=== PATIENT | female | born 1955 | race Caucasian/White ===

== ENCOUNTER 2016-10-01 23:18 | Inpatient (IN) | payer MEDICAID ==
[~2016-10-01] VITALS: Ht 152.4 cm; Wt 80.3 kg
--- NOTE | ~2016-10-01 | HEMODYNAMI ---
PATIENT:ALBERTA MARIN MEDICAL RECORD: [id number] : 53 [facility] ADMISSION DATE: 10/02/16 Generatedon:10/06/201615:07 Patient name: ALBERTA MARIN Patient #: [id number] SSN: : 1955 Date of study: 10/06/2016 Page: Of Hemodynamic Procedure Report Patient Data Patient Demographics Procedure consent was obtained First Name: ALBERTA Gender: Female Last Name: TANIA : 1955 Middle Initial: D Age: 61 year(s) Patient #: [id number] Race: Additional ID: [id number] Contact details Address: [address] [place] [address] [address] State: [place] City: [place] Zip code: [address] Past Medical History Allergies: No known allergies Admission Admission Data Admission Date: 10/02/2016 Admission Time: 4:45 Admit Source: Other Room #: D.2111 Height (in.): 66 BSA: 1.9 (m2) Height (cm.): 167.64 BMI: 28.57 (kg/m2) Weight (lbs.): 177 Weight (kg.): 80.29 Procedure Procedure Types Cath Procedure Diagnostic Procedure [facility] w/Coronaries PCI Procedure Coronary Stent Initial PTCA Additional Miscellaneous Procedures Moderate Sedation up to 15 minutes Procedure Description Procedure Date Procedure Date: 10/06/2016 Procedure Start Time: 14:40 Procedure End Time: 15:06 Procedure Staff Name Function Huber Valentino MD Performing Physician Telly Chua RT Scrub Eron Mosley RN Nurse Armond Marcus RT Monitor Procedure Data Cath Procedure Fluoroscopy Diagnostic fluoroscopy Total fluoroscopy Time: 6.6 time: 6.6 min min Diagnostic fluoroscopy Total fluoroscopy dose: dose: 507.72 mGy 507.72 mGy Contrast Material Contrast Material Type Amount (ml) Isovue 300 119 Entry Location Entry Primary Successful Side Size Upsize Upsize Entry Closure Succes sful Closure Location (Fr) 1 (Fr) 2 (Fr) Remarks Device Remarks Femoral Left 5 Fr 6 Fr Exoseal artery Short Estimated blood loss: 10 ml Diagnostic catheters Device Type Used For End Catheter Placement Cordis 5Fr Pigtail Procedure Catheter (MP) Cordis 5Fr JL 4.0 Procedure Catheter (MP) Cordis 5Fr 3DRC Catheter Procedure (MP) Procedure Complications No complications Procedure Medications Medication Administration Route Dosage Oxygen NC 2 l/min Heparin Flush Bag added to field 2 bags (1000units/500ml NS) 0.9% NaCl I.V. ml/hr Fentanyl I.V. 50 mcg Versed I.V. 1 mg Versed I.V. 1 mg Fentanyl I.V. 50 mcg Fentanyl I.V. 50 mcg Heparin Bolus I.V. 4000 units Integrilin (Bolus I.V. 7.3 ml 2mg/ml) Integrilin (Bolus wasted 2.7 ml 2mg/ml) Plavix P.O. 600 mg Fentanyl I.V. 50 mcg Hemodynamics Rest BSA: 1.9 (m2) O2 Consumption: Estimated: 183.59 (ml/min) O2 Consumption indexed: Estimated:96.63 (ml/min/m) Heart Rate: 76 (bpm) Pressure Samples Time Site Value (mmHg) Purpose Heart Use Rate(bpm) 14:41 LV 102/35,39 Snapshot 77 Snapshots Pre Cath Intra NCS Post Cath Vital Signs Time Heart Resp SPO2 NIBP (mmHg) Rhythm Pain Sedation Rate (ipm) (%) Status Level (bpm) 14:06:17 76 17 100 123/67(85) NSR 0 (11) 10(A) , No pain 14:15:22 75 16 97 107/59(88) NSR 0 (11) 10(A) , No pain 14:19:48 78 17 98 112/54(91) NSR 0 (11) 10(A) , No pain 14:24:08 76 17 97 102/58(72) NSR 0 (11) 10(A) , No pain 14:28:26 75 16 97 107/61(80) NSR 0 (11) 10(A) , No pain 14:32:46 76 19 97 109/62(79) NSR 0 (11) 10(A) , No pain 14:37:06 75 19 96 118/63(85) NSR 0 (11) 10(A) , No pain 14:41:29 74 17 95 117/69(102) NSR 0 (11) 9(A) , No pain 14:45:51 76 17 94 123/64(92) NSR 0 (11) 9(A) , No pain 14:50:15 81 17 94 113/71(88) NSR 0 (11) 9(A) , No pain 14:55:39 80 19 95 144/80(112) NSR 0 (11) 9(A) , No pain 15:00:03 80 8 94 143/94(114) NSR 0 (11) 10(A) , No pain 15:04:27 80 12 94 153/94(118) NSR 0 (11) 10(A) , No pain Medications Time Medication Route Dose Verified Delivered Reason Notes Effectiveness by by 14:06:30 Oxygen NC 2 Eron Eron Per physician l/min Dimitri Mosley RN RN 14:06:41 Heparin Flush added 2 Eron Eron used for Bag to bags Dimitri Mosley rn procedure (1000units/500ml field RN NS) 14:06:50 0.9% NaCl I.V. ml/hr Eron Eron Per physician Dimitri Mosley RN RN 14:38:47 Versed I.V. 1 mg Eron Eron for sedation Dimitri Mosley RN RN 14:38:48 Fentanyl I.V. 50 Eron Eron for sedation mcg Dimitri Mosley RN RN 14:41:22 Versed I.V. 1 mg Eron Eron for sedation Dimitri Mosley RN RN 14:41:26 Fentanyl I.V. 50 Eron Eron for sedation mcg Dimitri Mosley RN RN 14:47:20 Fentanyl I.V. 50 Eron Eron for sedation mcg Dimitri Mosley RN RN 14:47:30 Heparin Bolus I.V. 4000 Eron Eron for units Dimitri Mosley RN anticoagulation RN 14:47:41 Integrilin I.V. 7.3 Eron Eron for (Bolus 2mg/ml) ml Dimitri Mosley RN antiplatelet RN therapy 14:47:53 Integrilin wasted 2.7 Eron Eron for (Bolus 2mg/ml) ml Dimitri Mosley RN antiplatelet RN therapy 14:49:13 Fentanyl I.V. 50 Eron Eron for sedation mcg Mosley Mosley RN RN 14:57:36 Plavix P.O. 600 Eron Littlejohn for mg Dimitri Mosley RN antiplatelet RN therapy Procedure Log Time Note 13:50:33 Armond Marcus RT(R) (CV) sent for patient. Start room use. 14:05:00 Informed consent obtained and on chart 14:05:19 Diagnostic Cath Status : Elective 14:06:30 Oxygen 2 l/min NC was administered by Eron Mosley RN; Per physician; 14:06:36 Time tracking: Regular hours 14:06:41 Heparin Flush Bag (1000units/500ml NS) 2 bags added to field was administered by Eron Mosley RN; used for procedure; 14:06:42 Plan of Care:Hemodynamics will remain stable., Cardiac rhythm will remain stable., Comfort level will be maintained., Respiratory function will remain adequate., Patient/ family verbilizes understanding of procedure., Procedure tolerated without complication., Recovers from procedure without complications.. 14:06:50 0.9% NaCl ml/hr I.V. was administered by Eron Mosley RN; Per physician; 14:06:57 Patient received from PCU to CCL 3 Alert and oriented. Tansferred to table in Supine position. 14:09:58 PATIENT STATES THAT SHE FELL AND BROKE RIGHT HIP. WE WERE NOT TOLD BY NURSE. SHE COMPLAINS OF PAIN WE MOVE HER WITH SLIDE BOARD. H&P STATES INJURY FROM JULY. 14:14:04 ECG and BP/O2 sat monitors applied to patient. 14:14:07 Warm blankets applied, and vin hugger turned on for patient comfort. 14:14:08 Correct patient and procedure confirmed by team. 14:14:09 Vital chart was started 14:14:13 Baseline sample Acquired. 14:14:23 Rhythm: sinus rhythm 14:14:25 Full Disclosure recording started 14:14:44 H&P Date Dictated: 10/01/2016 Within 30 days and on chart., H&P Addendum completed by physician on day of procedure. (MUST COMPLETE FOR ALL OUTPATIENTS). 14:14:51 Pre-procedure instructions explained to patient. 14:14:53 Pre-op teaching completed and patient verbalized understanding. 14:14:57 Family unavailable. 14:14:59 Patient NPO since Breakfast. 14:15:18 Patient allergic to No known allergies 14:15:31 Is the patient allergic to Iodine/contrast media? No. 14:15:34 Is patient on blood thinner?No 14:15:48 Patient diabetic? No. 14:15:52 Patient not . Patient is over age 55. 14:20:59 Snore? Yes 14:21:01 Sleep apnea? No 14:21:04 Deviated septum? No 14:21:05 Opens mouth fully? Yes 14:21:07 Sticks out tongue? Yes 14:22:09 Airway obstruction? No ? 14:22:12 Dentures? No ? 14:22:31 Pre procedure: left dorsailis pedis pulse 1+ Palpable, but thready & weak; easily obliterated 14:22:55 Patient pain scale 0/10 NO CHEST PAIN, RIGHT HIP PAIN. 14:23:10 IV patent on arrival in right hand with 0.9% NaCl at [facility]. 14:23:47 PATIENT IS CONTACT PRECAUTION FOR C-DIFF RULE OUT. 14:24:29 YELLOW GOWNS ARE UTILIZED WELL UNIVERSAL PRECAUTION 14:25:38 Left groin area was prepped with chlora-prep and draped in sterile fashion 14:25:40 Alarms reviewed by R. N. 14:25:41 Sharps counted by scrub and verified by R.N. 14:27:05 Patient Height : 167.64 cm 14:27:10 Patient Weight : 80.29 kg 14:27:10 Admit Source: Other 14:33:57 Zero performed for pressure channel P1 14:37:48 Physician arrived 14:37:49 --------ALL STOP TIME OUT------ 14:37:50 Final Timeout: patient, procedure, and site verified with staff and physician. All members of the team are in agreement. 14:37:53 Left groin site verified by team. 14:38:07 Physical assessment completed. ASA score P 2 - A patient with mild systemic disease as per Huber Valentino MD. 14:38:11 Sedation plan: IV Moderate Sedation Versed, Fentanyl 14:38:14 Use device set Femoral Dx 14:38:16 Acist Syringe opened to sterile field. 14:38:17 Bag Decanter opened to sterile field. 14:38:18 Medline Cath Pack opened to sterile field. 14:38:19 Terumo 5Fr [place] Sheath opened to sterile field. 14:38:19 St Rick 260cm J .035 wire opened to sterile field. 14:38:21 Acist Hand Control opened to sterile field. 14:38:21 Acist Manifold opened to sterile field. 14:38:22 Diagnostic Infinity 5Fr Multipack catheter opened to sterile field. 14:38:23 Tegaderm 4 x 4 opened to sterile field. 14:38:47 Versed 1 mg I.V. was administered by Eron Mosley RN; for sedation; 14:38:48 Fentanyl 50 mcg I.V. was administered by Eron Mosley RN; for sedation; 14:40:13 Procedure started. 14:40:20 Local anesthetic to left femerol artery with Lidocaine 2% by Huber Valentino MD.INITIAL ACCESS ONLY 14:41:07 A 5 Fr sheath was inserted into the Left Femoral artery 14:41:13 A Cordis 5Fr Pigtail Catheter (MP) was advanced over the wire and used for Procedure. 14:41:22 Versed 1 mg I.V. was administered by Eron Mosley RN; for sedation; 14:41:26 Fentanyl 50 mcg I.V. was administered by Eron Mosley RN; for sedation; 14:41:29 LV hemodynamics recorded. 14:41:32 LV gram done using AGUILERA 14:41:38 EF : 40 % 14:41:40 Catheter removed. 14:41:47 A Cordis 5Fr JL 4.0 Catheter (MP) was advanced over the wire and used for Procedure. 14:42:26 LCA angiography performed. 14:43:22 Catheter removed. 14:43:27 A Cordis 5Fr 3DRC Catheter (MP) was advanced over the wire and used for Procedure. 14:44:26 RCA angiography performed. 14:44:42 Catheter removed. 14:44:45 Proceeding to intervention. 14:46:23 Cordis 6FR XBLAD 4.0 guide catheter opened to sterile field. 14:46:24 Terumo 6Fr [place] Sheath opened to sterile field. 14:46:25 Breaux Whisper J 300cm 0.014 guide wire opened to sterile field. 14:46:27 Merit BasixCompak Inflation Kit opened to sterile field. 14:46:39 Procedure type changed to Cath procedure, Diagnostic procedure, LHC, LHC w/Coronaries, PCI procedure, Coronary Stent Initial, PTCA Additional, Miscellaneous Procedures, Moderate Sedation up to 15 minutes 14:46:51 Sheath upsized to a 6 Fr Short. 14:47:02 6 Fr XBLAD 4 guide catheter was inserted over the wire 14:47:20 Fentanyl 50 mcg I.V. was administered by Eron Mosley RN; for sedation; 14:47:30 Heparin Bolus 4000 units I.V. was administered by Eron Mosley RN; for anticoagulation; 14:47:41 Integrilin (Bolus 2mg/ml) 7.3 ml I.V. was administered by Eron Mosley RN; for antiplatelet therapy; 14:47:53 Integrilin (Bolus 2mg/ml) 2.7 ml wasted was administered by Eron Mosley RN; for antiplatelet therapy; 14:47:56 WHISPER wire advanced. 14:48:14 Wire advanced across lesion. 14:49:00 Inflation Number: 1 A Medtronic Integrity 2.5 X 12 stent was prepped and advanced across the Mid LAD. The stent was deployed at 11 DIANA for 0:10 (min:sec). 14:49:13 Fentanyl 50 mcg I.V. was administered by Eron Mosley RN; for sedation; 14:50:02 Stent catheter was removed intact over wire. 14:51:02 Inflation Number: 2 A Medtronic Integrity 2.5 X 18 stent was prepped and advanced across the Mid LAD. The stent was deployed at 11 DIANA for 0:10 (min:sec). 14:51:06 Stent catheter was removed intact over wire. 14:52:59 Wire redirected to DIAGONAL. 14:53:01 Stent balloon re-inserted over wire. 14:53:49 STENT BALLOON INFLATED 5 DIANA'S FOR 10 SECONDS 14:53:52 Wire removed. 14:53:57 Stent catheter was removed intact over wire. 14:53:59 Guide catheter removed. 14:54:22 Cordis 6Fr Exoseal opened to sterile field. 14:54:34 Sheath removed intact; hemostasis achieved with Exoseal to the Left Femoral artery. 14:54:45 Procedure ended.(Physican Out) 14:55:01 Fluoroscopy time 06.60 minutes. 14:55:08 Fluoroscopy dose: 507.72 mGy 14:55:08 Flurop Dose total: 507.72 14:55:18 Contrast amount:Isovue 300 119ml. 14:55:19 Sharps counted by scrub and verified by R.N. 14:57:36 Plavix 600 mg P.O. was administered by Eron Mosley RN; for antiplatelet therapy; 15:01:23 Insertion/operative site no bleeding no hematoma. 15:02:19 Post-op/insertion site Right Femoral artery dressed using a 4 x 4 and Tegaderm. 15:02:20 Post Procedure Pulses reassessed and unchanged 15::23 Post-procedure physical assessment completed. ASA score P 2 - A patient with mild systemic disease as per Huber Valentino MD. 15:02:26 Post procedure rhythm: unchanged. 15:02:29 Estimated blood loss: 10 ml 15:02:30 Post procedure instruction explained to patient.Patient verbalizes understanding. 15:02:31 Patient needs reinforcement of post procedure teaching. 15:02:59 Procedure Complication : No complications 15:03:31 Procedure and supply charges have been captured, reviewed, submitted and are correct. 15:06:22 Vital chart was stopped 15:06:22 See physician's report for complete and final results. 15:06:25 Report given to PCU. 15:06:28 Patient transfered to PCU with Bed. 15:06:30 Procedure ended. 15:06:30 Full Disclosure recording stopped 15:06:34 End room use (Document Last) Intervention Summary Intervention Notes Time ActionType Lesion and Equipment Action# Pressure Duration Attributes Used 14:49:00 Place stent Mid LAD Medtronic 1 11 00:10 Integrity 2.5 X 12 stent 14:51:02 Place stent Mid LAD Medtronic 2 11 00:10 Integrity 2.5 X 18 stent Device Usage Item Name Manufacture Quantity Catalog Hospital Part Current Minimal L ot# / Number Charge Number Stock Stock Serial# Code Acist Acist 1 52768 976235 001005 [id number] 20 Syringe Medical Systems Inc Bag Microtek 1 2002S 562109 20342 390211 5 [employer] Medline Cardinal 1 [id number] 812668 61690 976940 5 Cath Pack Autogeneration Marketing Terumo 5Fr Terumo 1 [id number] 505382 237216 492926 [address] Rick 1 388015 162286 202015 462091 30 260cm J .035 wire Acist Hand Acist 1 90160 265812 068540 150758 5 Control Medical Systems Inc Acist Acist 1 83680 289142 358181 940602 5 [facility] Medical Systems Inc Diagnostic Cardinal 1 [id number] 843303 11701 125295 30 Infinity Health 5Fr Multipack catheter Tegaderm 4 3M 1 1626W 464115 244993 260448 5 x 4 Cordis 5Fr Cardinal 1 108630 5 Pigtail Health Catheter (MP) Cordis 5Fr Cardinal 1 854241 5 JL 4.0 Health Catheter (MP) Cordis 5Fr Cardinal 1 909300 5 3DRC Health Catheter (MP) Cordis 6FR Cardinal 1 [id number] 308185 538589 538890 3 XBLAD 4.0 Health guide catheter Terumo 6Fr Terumo 1 JNS208 668514 300996 385560 40 [place] Sheath Breaux Breaux 1 [id number] 647481 958234 556644 5 Whisper J Vascular 300cm 0.014 guide wire Merit Merit 1 SE4935 706905 760354 879642 15 BasixCompak Medical Inflation Kit Medtronic Medtronic 1 [id number] 491162 293234 3 0 [id number] Integrity 2.5 X 12 stent Medtronic Medtronic 1 [id number] 783775 338813 1 0 [id number] Integrity 2.5 X 18 stent Cordis 6Fr Cardinal 1 EX600 923744 535688 883100 10 [facility] Autogeneration Marketing Signature Audit [place] Stage Time Signature Unsigned Intra-Procedure 10/06/2016 Armond Marcus 3:06:57 PM RT(R) (CV) Signatures Monitor : Armond Marcus RT Signature : Date : Time : [facility] [address] [place], [place] [address]
[2016-10-01 23:54] LABS: BASOPHILS 0.3 % (0-2); EOSINOPHILS 0.6 % (0-7); HEMATOCRIT 31.8 % (36.0-48.0); HEMOGLOBIN 10.9 g/dL (12-16); IMMATURE GRANULOCYTES 1.3 % (0-5); MCH 40.1 pg (26.0-34.0); MCHC 34.3 g/dL (31.0-37.0); MCV 116.9 fL (80.0-100.0); MEAN PLATELET VOLUME 10.8 fL (7.4-10.4); MONOCYTES 1.9 % (2-11); NEUTROPHILS 90.9 % (40-80); PLATELET COUNT 56 10x3/uL (130-400); RBC 2.72 10x6/uL (4.00-5.40); RDW 18.1 % (11.5-14.5); WBC 3.2 10x3/uL (4.8-10.8)
[2016-10-02] VITALS (18 sets, daily range): BP systolic 101–126; BP diastolic 64–82; BMI 34.6
[2016-10-02 00:08] LABS: APPEARANCE HAZY (CLEAR); BACTERIA NONE SEEN /hpf (NONE SEEN); BILIRUBIN NEGATIVE (NEGATIVE); COLOR YELLOW (YELLOW); EPITHELIAL CELLS NSEEN /hpf (0-5); GLUCOSE NEGATIVE (NEGATIVE); KETONE NEGATIVE (NEGATIVE); LEUKOCYTE ESTERASE NEGATIVE (NEGATIVE); NITRITE NEGATIVE (NEGATIVE); PROTEIN 2+ mg/dL (NEGATIVE); UROBILINOGEN NORMAL (NORMAL); WHITE CELLS - URINE 0-5 /hpf (0-5)
[2016-10-02 00:25] LABS: ALBUMIN 1.2 g/dL (3.4-5.0); ANION GAP 17.2 mmol/L (8-16); BILIRUBIN - TOTAL 3.23 mg/dL (0.2-1.3); CALCIUM 7.7 mg/dL (8.5-10.1); CARBON DIOXIDE 20.1 mmol/L (21.0-32.0); CREATININE - SERUM 1.1 mg/dL (0.6-1.3); POTASSIUM - SERUM 3.3 mmol/L (3.5-5.1); PROTEIN - SERUM 6.5 g/dL (6.4-8.2)
[2016-10-02 01:09] LABS: TROPONIN-I 0.32 ng/mL (0.000-0.060)
[2016-10-02 03:53] LABS: TROPONIN-I 5.104 ng/mL (0.000-0.060)
--- NOTE | 2016-10-02 07:33 | NUR ---
PT ARRIVED ON UNIT VIA STRETCHER FROM ER. PT HAD 3 EMPTY PILL BOTTLES AND CHANGE PURSE WITH HER. ON 2L WITH O2 SAT 98% COMPLAINS OF PAIN IN ABDOMEN AND NAUSEA AT THIS TIME, GIVEN EMESIS BAG. PT AAOX4 AND LETHARGIC. ABLE TO ANSWER ALL QUESTIONS APPROPRIATELY. VITAL SIGNS STABLE. ASSESSMENT DOCUMENTED PER FLOWSHEET
[2016-10-02] MEDS ORDERED: MOTRIN600 MG PO (07:54)
[2016-10-02] MEDS ORDERED: AUGMENTIN 875-11 TAB PO (07:56)
[2016-10-02] MEDS ORDERED: PERCOCET 5-3251 TAB PO (07:57)
[2016-10-02 08:40] LABS: CKMB 12.3 U/L (0.0-3.6); CREATINE KINASE 154 UL (21-215)
[2016-10-02 08:46] LABS: TROPONIN-I 6.559 ng/mL (0.000-0.060)
--- NOTE | 2016-10-02 09:00 | NUR ---
CARDIOLOGY ROUNDED ON PT AND WROTE ORDERS. PAIN AND NAUSEA MEDICATION ORDERED AND ARE TO BE GIVEN PRN. WILL CONTINUE TO MONITOR
--- NOTE | 2016-10-02 11:00 | NUR ---
DR SWANSON GIVEN UPDATE ON PT STATUS. RECORDS RELEASE SIGNED AND SENT TO [facility] FOR PAST MEDICAL RECORDS. NO FURTHER CHANGES AT THIS TIME
[2016-10-02 12:57] LABS: CHOL - HDL RATIO 9.3 ratio (2.3-4.1); LDL-HDL RATIO 7.2 ratio (1.5-3.5)
--- NOTE | 2016-10-02 13:00 | NUR ---
DR JESUS ROUNDED ON PT AND PUT ORDERS FOR PAST SEIZURE HISTORY. EEG IN PROGRESS. WILL CONTINUE TO MONTIOR
[2016-10-02 14:18] LABS: INR 1.78 (0.85-1.17); PROTIME 20.7 SECONDS (11.6-15.0)
[2016-10-02 14:48] LABS: CKMB 17.7 U/L (0.0-3.6); CREATINE KINASE 180 UL (21-215)
[2016-10-02 14:51] LABS: TROPONIN-I 6.122 ng/mL (0.000-0.060)
--- NOTE | 2016-10-02 15:00 | NUR ---
PIV SITED IN RIGHT HAND 22GA WITH DRESSING CDI. BICARB INFUSING AT 50 ML/HR. NO CHANGES IN PT STATUS AT THIS TIME. WILL CONTINUE TO MONITOR
--- NOTE | 2016-10-02 17:49 | HP ---
PATIENT: ALBERTA LEWIS MEDICAL RECORD: [id number] ACCOUNT: [id number] LOCATION:[facility] D.2302 : 53 ADMISSION DATE: 10/02/16 HISTORY AND PHYSICAL EXAMINATION HISTORY OF PRESENT ILLNESS: Ms. Lewis is a 61-year-old black female that comes into the Emergency Room with shortness of breath and chest pain. EKG shows no EKG changes; however, she is found to have elevated cardiac enzymes and an elevated lactic acid compatible with a non-Q-wave AK. She was recently hospitalized at [facility] for pneumonia and also had a medial femoral condyle fracture. She went to follow up with orthopedics, but was told she was too late and never went back to see them. She is still wearing a knee brace at this time. She was complaining of abdominal pain earlier, but that seems better now. She denies any chest pain at present. Incidental finding at the time of ER visit was a liver mass suspicious for hepatocellular carcinoma. She has a known history of cirrhosis secondary to alcohol abuse, but states that she has not drunk heavily in some time. Her fiance today also states that she had a couple of beers on Sunday, but that is the first time that this happened. He actually found her at their apartment last night lying on the floor, seizure was not actually witnessed and apparently last seizure was about over a month ago. She states she has not taken the Dilantin over a year due to lack of a PCP. She is admitted to the ICU at this time for further evaluation. PAST MEDICAL HISTORY: Significant for seizures and cirrhosis, recent hospitalization for pneumonia. PAST SURGICAL HISTORY: Include a cholecystectomy, section and left breast biopsy, which was benign. ALLERGIES: None known. HOME MEDICATIONS: She was taking some Augmentin and oxycodone upon discharge from [facility]. She is supposed to be on Dilantin, her previous dose was 100mg b.i.d., but again she has not taken it in sometime. FAMILY HISTORY: Unknown. SOCIAL HISTORY: She is trying to quit smoking. She has been a heavy drinker in the past and still drinks a couple of cans of beer on occasion. She is currently living with her fiance. REVIEW OF SYSTEMS: She is a pretty poor historian. She apparently had some fever at home, but she denies that at this time. She complains primarily of upper abdominal pain. She had some chest pain last night. She feels better today. Her weight has been stable. She denies any nausea or vomiting at this time. She complains of pain in the right knee. She is wearing a knee brace on the right. She denies any change in bladder or bowel habits. PHYSICAL EXAMINATION: HEENT: Head is normocephalic, sclerae nonicteric. Mucous membranes are moist. NECK: Soft and supple. HEART: Regular. LUNGS: Clear. ABDOMEN: There is some tenderness in the epigastric area. The liver is nonpalpable. HISTORY AND PHYSICAL [id number] ALBERTA LEWIS LOWER EXTREMITIES: Okay. IMPRESSION: 1. Non-Q-wave acute myocardial infarction. 2. Liver mass. 3. Seizure disorder. 4. Medial femoral condyle and knee fracture, elevated lactic acid, hypokalemia, elevated LFTs, history of alcohol abuse. PLAN: Admit, ICU, we will get cardiology ____ beta payton and aspirin have been started. We will check lipid, we will check tumor markers. We will get a dedicated CT abdomen and pelvis due to liver mass, this may need a biopsy. We will check a chest x-ray, knee x-ray, get an EEG and ask Dr. Felipe to assess. See further orders for plan. TRANSINT:[id number] Voice Confirmation ID: [id number] DOCUMENT ID: [id number] CALLI SWANSON DO at 1749 CC: [id number] DICTATION DATE: 10/02/16 1232 CREDIT AND COLLECTIONS ANALYST: 10/02/16 1446 ADM IN [place] [id number] [place] [id number]
--- NOTE | 2016-10-02 19:40 | NUR ---
REPORT RECIEVED. ASSESSMENT COMPLETE PER FLOW SHEET. VSS. GIVEN SPRITE PER REQUEST. R LEG ELEVATED ON PILLOW WITH ICE TO DECREASE SWELLING. DENIES FURTHER NEEDS. WILL CONTINUE TO MONITOR.
[2016-10-02 20:57] LABS: CREATINE KINASE 175 UL (21-215)
[2016-10-02 21:02] LABS: CKMB 10.3 U/L (0.0-3.6)
[2016-10-02 21:06] LABS: TROPONIN-I 6.442 ng/mL (0.000-0.060)
--- NOTE | 2016-10-02 23:28 | NUR ---
REASSESSMENT COMPLETE PER FLOW SHEET. VSS. NO NEW CHANGES WILL CONTINUE TO MONITOR.
[2016-10-03] VITALS (24 sets, daily range): BP systolic 102–141; BP diastolic 47–93; Ht 152.4 cm; Wt 80.3 kg
--- NOTE | 2016-10-03 01:12 | NUR ---
VSS NO NEW CHANGES. PT SLEEPING COMFORTABLY.
--- NOTE | 2016-10-03 03:16 | NUR ---
REASSESSMENT COMPLETEPER LFOW SHEET. VSS. NO NEW CHANGES. WILL CONTINUE TO MONITOR.
[2016-10-03 05:09] LABS: BASOPHILS 0.3 % (0-2); EOSINOPHILS 2.2 % (0-7); HEMATOCRIT 31.7 % (36.0-48.0); HEMOGLOBIN 10.8 g/dL (12-16); IMMATURE GRANULOCYTES 0.9 % (0-5); MCHC 34.1 g/dL (31.0-37.0); MCV 117.4 fL (80.0-100.0); MEAN PLATELET VOLUME 11.1 fL (7.4-10.4); MONOCYTES 14.3 % (2-11); NEUTROPHILS 73.3 % (40-80); PLATELET COUNT 52 10x3/uL (130-400); RDW 17.8 % (11.5-14.5)
[2016-10-03 05:19] LABS: WBC 6.8 10x3/uL (4.8-10.8)
[2016-10-03 05:30] LABS: ALBUMIN 1.1 g/dL (3.4-5.0); BILIRUBIN - TOTAL 2.13 mg/dL (0.2-1.3); CALCIUM 7.2 mg/dL (8.5-10.1); CREATININE - SERUM 1.3 mg/dL (0.6-1.3); MAGNESIUM - SERUM 1.5 mg/dL (1.8-2.4); POTASSIUM - SERUM 3.6 mmol/L (3.5-5.1); PROTEIN - SERUM 6.1 g/dL (6.4-8.2)
[2016-10-03 05:37] LABS: ANION GAP 8.2 mmol/L (8-16); CARBON DIOXIDE 25.4 mmol/L (21.0-32.0)
--- NOTE | 2016-10-03 07:00 | NUR ---
PT AA0X4 AND ABLE TO OBEY COMMANDS. COMPLAINS OF SEVERE KNEE PAIN IN HER RIGHT KNEE. WILL GIVE PRN MEDICATIONS ORDERED. PT REPOSITIONED IN BED WITH MODERATE ASSISTANCE. SHIFT ASSESSMENT COMPLETED PER FLOWSHEET. NORMAL SINUS ON MONITOR. WILL CONTINUE TO MONITOR FOR EKG CHANGES. NO CHANGES AT THIS TIME. WILL CONTINUE TO MONITOR
[2016-10-03 07:27] LABS: HCG-QUANTITATIVE(TUMOR MARKER) <1 mIU/mL (())
[2016-10-03 08:20] LABS: ALPHA FETOPROTEIN -(TUMOR MRK) 49.4 ng/mL (0.0-8.3)
--- NOTE | 2016-10-03 09:00 | NUR ---
PT UP EATING BREAKFAST INDEPENDENTLY. STATES THAT NAUSEA HAS SUBSIDED FROM YESTERDAY. REPEAT CARDIAC ENZYMES TODAY. VITAL SIGNS STABLE
[2016-10-03 09:38] LABS: CKMB 8.4 U/L (0.0-3.6); CREATINE KINASE 112 UL (21-215)
[2016-10-03 09:39] LABS: TROPONIN-I 4.746 ng/mL (0.000-0.060)
--- NOTE | 2016-10-03 11:00 | NUR ---
PT HAS NO COMPLAINTS AT THIS TIME. VITAL SIGNS STABLE. WILL CONTINUE TO MONITOR.
[2016-10-03 12:17] LABS: HEPATITIS C ANTIBODY 0.3 (0.0-0.9)
--- NOTE | 2016-10-03 13:00 | NUR ---
PT TOLERATING MEALS WITHOUT NAUSEA. VITAL SIGNS STABLE. WILL CONITNUE TO MONITOR
--- NOTE | 2016-10-03 15:00 | NUR ---
PT IS RESTING COMFORTABLY AT THIS TIME. VITAL SIGNS STABLE. PT OFF OF OXYGEN AT THIS TIME AND O2 SAT REMAINS STABLE
--- NOTE | 2016-10-03 17:00 | NUR ---
PT UP EATING DINNER INDEPENDENLY. VITAL SIGNS STABLE AT THIS TIME. WILL CONTINUE TO MONITOR. DR SWANSON NOTIFIED OF OLIGURIA AND FLUIDS ADJUSTED.
--- NOTE | 2016-10-03 19:20 | NUR ---
REPORT RECIEVED. ASSESSMENT COMPLETE PER FLOW SHEET. REFER FOR FINDINGS. PT LETHARGIC ORIENTED X4. VSS. O2 VIA NC 2L O2 SAT 98% RR 16 NON LABORED BILAT LUNGS CLEAR HERAT S1S2 HR 77 NSR. BS ACTIVE X4. LI PATENT. GENERALIZED EDEMA NOTED X4 EXTREMETIES. X4 EXTREMETIES WEAK. R LEG BRACE NOTED ICE APPLIED TO SITE. DENIES NEEDS. GIVEN SPRITE FOR COMFORT. WILL CONTINUE TO MONITOR.
--- NOTE | 2016-10-03 21:00 | NUR ---
NO VISITORS AT THIS TIME, WILL CON'T TO MONITOR
--- NOTE | 2016-10-03 23:00 | NUR ---
REASSESSMENT COMPLETE, NO CHANGES NOTED, LG LIQUID BM AT THIS TIME, COMPLETE BATH AND LINEN CHANGE
[2016-10-04] VITALS (10 sets, daily range): BP systolic 115–138; BP diastolic 69–74
--- NOTE | 2016-10-04 01:08 | NUR ---
LARGE LIQUID ORANGE/BROWN BM NOTED. NO NEW CHANGES WILL CONTINUE TO MONITOR.
--- NOTE | 2016-10-04 02:16 | NUR ---
L AC PIV REMOVED. L WRIST 20 G PIV STARTED ON 1 ATTEMPT FLUSHES WITHOUT DIFFICULTY. VSS NO NEW CHANGES. WILL CONTINUE TO MONITOR.
--- NOTE | 2016-10-04 03:18 | NUR ---
REASSESSMENT COMPLETE PER FLOW SHEET.VSS. NO NEW CHANGES. WILL CONTINUE TO MONITOR.
[2016-10-04 04:05] LABS: BASOPHILS 0.4 % (0-2); HEMATOCRIT 31.5 % (36.0-48.0); IMMATURE GRANULOCYTES 1.3 % (0-5); LYMPHOCYTES 7.1 % (15-50); MCH 40.1 pg (26.0-34.0); MCHC 34.9 g/dL (31.0-37.0); MONOCYTES 14.8 % (2-11); NEUTROPHILS 75.4 % (40-80); RBC 2.74 10x6/uL (4.00-5.40); RDW 17.2 % (11.5-14.5); WBC 6.9 10x3/uL (4.8-10.8)
[2016-10-04 04:11] LABS: PLATELET COUNT 46 10x3/uL (130-400)
[2016-10-04 04:14] LABS: INR 1.71 (0.85-1.17)
[2016-10-04 04:45] LABS: ALKALINE PHOSPHATASE 191 U/L (46-116); ALT (SGPT) 18 U/L (10-68); BILIRUBIN - TOTAL 2.78 mg/dL (0.2-1.3); CALC OSMOLALITY 274 mosm/kg (275-300); CALCIUM 7.3 mg/dL (8.5-10.1); CARBON DIOXIDE 24.9 mmol/L (21.0-32.0); CHLORIDE - SERUM 103 mmol/L (98-107); CKMB 3.9 U/L (0.0-3.6); CREATINE KINASE 49 UL (21-215); CREATININE - SERUM 1.2 mg/dL (0.6-1.3); GLUCOSE 227 mg/dL (74-106); MAGNESIUM - SERUM 1.5 mg/dL (1.8-2.4); PHENYTOIN (DILANTIN) 5.7 ug/mL (10.0-20.0); POTASSIUM - SERUM 4.1 mmol/L (3.5-5.1); SODIUM 133 mmol/L (136-145); UREA NITROGEN 19 mg/dL (7-18); eGFR NON AFRICAN AMERICAN 48 mL/min (90-120)
[2016-10-04 04:49] LABS: TROPONIN-I 2.778 ng/mL (0.000-0.060)
--- NOTE | 2016-10-04 05:15 | NUR ---
NO NEEDS NOTED AT THIS AT TIME, REPOSITIONED FOR COMFORT,
--- NOTE | 2016-10-04 10:54 | NUR ---
PT TO ROOM FROM ICU. PT ALERT AND ORIENTED. PT SATS 92% ON RA. IMMOBILIZER NOTED TO R LEG, LI CATH DRAINING BY GRAVITY. PT STATES SHE IS HUNGRY AND READY FOR LUNCH. PT IS AWARE THAT LUNCH WILL BE HERE IN ABOUT 1 HOUR WILL RESUME POC
--- NOTE | 2016-10-04 17:52 | NUR ---
CALLED TO PT ROOM PT STATES "GIVE ME SOMETHING THAT I CAN SHIT IN NOW!" I ASKED PT IF SHE MEANT THAT SHE NEEDED TO HAVE A BOWEL MOVEMENT? SHE STATES "YES". GIVEN PT BED COLLADO PT STATES SHE IS COMPLETELY BEDFAST. PT HAD LARGE BM CONTAINING SEEDY DIARRHEA. SENT TO THE LAB FOR ANALYSIS.
--- NOTE | 2016-10-04 18:49 | NUR ---
PT SITTING UP IN BED RESTING NO S/S DISTRESS NOTED
--- NOTE | 2016-10-04 20:10 | NUR ---
REPORT RECEIVED AND CARE ASSUMED. PLACED ON CONTACT ISOLATION FOR C-DIFF. PER LAB RESULTS ON STOOL. VSS. SHIFT ASSESSMENT COMPLETED PER FLOW SHEET. DENIES ANY NEEDS AT THIS TIME. BED LOW, SIDERAILS UP, AL IN EASY REACH.
--- NOTE | 2016-10-04 22:00 | NUR ---
INCONTINENT OF LARGE AMOUNT OF LOOSE STOOL. COMPLETE BATH AND LINEN CHANGE DONE.
[2016-10-05] VITALS: BP 112/63
[2016-10-05 04:00] VITALS: BP 102/50
[2016-10-05 05:44] LABS: BASOPHILS 0.4 % (0-2); EOSINOPHILS 2.1 % (0-7); HEMATOCRIT 29.9 % (36.0-48.0); HEMOGLOBIN 10.4 g/dL (12-16); IMMATURE GRANULOCYTES 2.7 % (0-5); LYMPHOCYTES 12.3 % (15-50); MCH 39.8 pg (26.0-34.0); MCHC 34.8 g/dL (31.0-37.0); MCV 114.6 fL (80.0-100.0); MEAN PLATELET VOLUME 11.3 fL (7.4-10.4); MONOCYTES 9.1 % (2-11); NEUTROPHILS 73.4 % (40-80); RBC 2.61 10x6/uL (4.00-5.40); RDW 17.6 % (11.5-14.5); WBC 7.5 10x3/uL (4.8-10.8)
[2016-10-05 06:00] LABS: PLATELET COUNT 47 10x3/uL (130-400)
--- NOTE | 2016-10-05 06:00 | NUR ---
PATIENT HAS BEEN INCONTINENT OF LOOSE STOOLS X 5 TONIGHT.
[2016-10-05 06:07] LABS: ALBUMIN 0.9 g/dL (3.4-5.0); ALKALINE PHOSPHATASE 175 U/L (46-116); ALT (SGPT) 21 U/L (10-68); BILIRUBIN - TOTAL 2.69 mg/dL (0.2-1.3); CARBON DIOXIDE 26.5 mmol/L (21.0-32.0); CHLORIDE - SERUM 104 mmol/L (98-107); GLUCOSE 211 mg/dL (74-106); MAGNESIUM - SERUM 1.4 mg/dL (1.8-2.4); POTASSIUM - SERUM 3.7 mmol/L (3.5-5.1); PROTEIN - SERUM 5.1 g/dL (6.4-8.2); SODIUM 135 mmol/L (136-145)
[2016-10-05 06:10] LABS: CALC OSMOLALITY 275 mosm/kg (275-300); CALCIUM 6.9 mg/dL (8.5-10.1); CREATININE - SERUM 0.8 mg/dL (0.6-1.3); UREA NITROGEN 12 mg/dL (7-18); eGFR NON AFRICAN AMERICAN 77 mL/min (90-120)
--- NOTE | 2016-10-05 06:30 | NUR ---
LAB CALLED CRITICAL PLATELETS OF 47. RESULTS GIVEN TO DR. BYERS. HE SAID HER HEART CATH WOULD BE CANCELLED FOR TODAY.
--- NOTE | 2016-10-05 07:26 | NUR ---
PT SITTING UP IN BED AWAITING BREAKFAST DENIES OTHER NEEDS WILL CONT TO MONITOR
[2016-10-05 07:48] VITALS: BP 124/59
--- NOTE | 2016-10-05 10:58 | NUR ---
Nutrition follow-up: Diet: low sodium PO intake ~55% average of last 7 meals Labs reviewed Glucose elevated +BM, multiple loose; +C.Diff, now in isolation PO intake fair at this time RDN following.
[2016-10-05 12:36] VITALS: BP 118/62
[2016-10-05 18:09] VITALS: BP 132/52
--- NOTE | 2016-10-05 18:52 | NUR ---
PT SITTING UP IN BED SLEEPING NO S/S DISTRESS NOTED
[2016-10-05 19:00] VITALS: BP 121/62
--- NOTE | 2016-10-05 20:10 | NUR ---
REPORT RECEIVED AND CARE ASSUMED. VSS LYING IN BED RESTING WITH EYES CLOSE. NO S/S OF DISTRESS. SHIFT ASSESSMENT COMPLETED PER FLOW SHEET. WILL CONTINUE TO MONITOR.
[2016-10-06] VITALS: BP 123/64
[2016-10-06 04:00] VITALS: BP 122/76
--- NOTE | 2016-10-06 05:10 | NUR ---
X-RAY IN ROOM DONG CHEST X-RAY AT BEDSIDE.
[2016-10-06 06:00] LABS: BASOPHILS 0.8 % (0-2); EOSINOPHILS 3.2 % (0-7); HEMATOCRIT 30.6 % (36.0-48.0); HEMOGLOBIN 10.4 g/dL (12-16); IMMATURE GRANULOCYTES 5.1 % (0-5); LYMPHOCYTES 13.3 % (15-50); MCH 39.1 pg (26.0-34.0); MEAN PLATELET VOLUME 11.7 fL (7.4-10.4); MONOCYTES 11.5 % (2-11); NEUTROPHILS 66.1 % (40-80); PLATELET COUNT 54 10x3/uL (130-400); RBC 2.66 10x6/uL (4.00-5.40); RDW 17.5 % (11.5-14.5); WBC 7.2 10x3/uL (4.8-10.8)
[2016-10-06 06:23] LABS: ALBUMIN 0.9 g/dL (3.4-5.0); BILIRUBIN - TOTAL 2.55 mg/dL (0.2-1.3); CALCIUM 7.1 mg/dL (8.5-10.1); CARBON DIOXIDE 24.9 mmol/L (21.0-32.0); MAGNESIUM - SERUM 1.4 mg/dL (1.8-2.4); POTASSIUM - SERUM 3.9 mmol/L (3.5-5.1); PROTEIN - SERUM 5.5 g/dL (6.4-8.2)
[2016-10-06 06:26] LABS: PLATELET ESTIMATE DECREASED
--- NOTE | 2016-10-06 06:58 | EEG ---
PATIENT:ALBERTA MARIN DATE OF SERVICE: 10/02/16 MEDICAL RECORD: [id number] DATE OF : 53 LOCATION:D.211 D.M2 ADMISSION DATE: 10/02/16 REFERRING PHYSICIAN: INTERPRETING PHYSICIAN: LUL JESUS MD DATE OF SERVICE: 10/02/[address] Tabor as an inpatient, currently in room 2302. ELECTROENCEPHALOGRAM NUMBER: [id number]. DATE OF EXAMINATION: 10/02/2016 at 2:00 p.m. TECHNICAL DATA: This electroencephalographic recording consisted of approximately 20 minutes of data collection utilizing the international 10/20 system of electrode placement and both referential and non-referential montages. Sixteen channels of electrocerebral recording are accompanied by a 17th channel dedicated to the electrocardiographic rhythm and 2 channels of electromyographic recording. Recording is performed in the awake and drowsy states utilizing activation by photic stimulation. ELECTROENCEPHALOGRAPHIC DATA: The awake state comprises approximately 30% of the recorded electrocerebral activity. Electromyographic artifact is prominent and rapid eye movements are seen. The posterior dominant background consists of a symmetric, rhythmic, waxing and waning 6-7 Hz theta activity, which is suppressed by eye opening. The drowsy state comprises the remaining portion of the recorded electrocerebral activity. Electromyographic artifact is diminished and rapid eye movements are not seen. The posterior dominant background is at times relatively suppressed. No focal slowing is identified. No epileptiform discharges are seen. Photic stimulation induces no change in the recorded electrocerebral activity. INTERPRETATION: Background slow (awake and drowsy). This electroencephalographic recording is indicative of a mild diffuse encephalopathy. TRANSINT:[id number] Voice Confirmation ID: [id number] DOCUMENT ID: [id number] LUL JESUS MD at 0658 CC: [id number] DICTATION DATE: 10/03/16 0701 NETWORK SUPPORT ANALYST: 10/03/16 0847 ADM IN [facility] [address] [place] [address]
[2016-10-06 07:44] LABS: INR 1.66 (0.85-1.17); PROTIME 19.6 SECONDS (11.6-15.0)
[2016-10-06 08:06] VITALS: BP 102/54
--- NOTE | 2016-10-06 11:09 | NUR ---
AM ROUNDS - PT IN BED AWAKE AND ALERT RECIEVING DIALYSIS. MONITOR SHOWING SR, HR 62. RIGHT HAND, NS AT 75CC/HR. PT IS ON CONTACT ISOLATION. PT IS BEDFAST. NO NEEDS AT THIS TIME. WILL CONTINUE TO MONITOR
--- NOTE | 2016-10-06 11:22 | NUR ---
AM ROUNDS - PT IN BED AWAKE AND ALERT. PT IN ON CONTACT ISOLATION. RIGHT HAND, NS AT 75CC/HR. NO FURTHER NEEDS AT THIS TIME.
[2016-10-06 12:12] VITALS: BP 113/61
--- NOTE | 2016-10-06 16:15 | NUR ---
Patient Name: ALBERTA MARIN Admission Status: ER Accout number: [id number] Admission Date: 10-02-2016 : 1955 Admission Diagnosis:CHEST PAIN, UNSPECIFIED Attending: VAN Current LOS: 4 Anticipated DC Date: 10-07-2016 Planned Disposition: Home Primary Insurance: MEDICAID [place] Discharge Planning Comments: CM ATTEMPTED TO MEET WITH PT FOR INITIAL ASSESSMENT OF DISCHARGE NEEDS. PT WAS SEDATED IN ROOM AT APPROXIMATELY 1505 HOURS. BEDSIDE NURSE REPORTS PT JUST BACK FROM PROCEDURE. NO FAMILY PRESENT. CM TO ATTEMPT ASSESSMENT OF PT AT A LATER TIME. Metal Finish Inspector: Esvin Patel
[2016-10-06 19:00] VITALS: BP 119/62
--- NOTE | 2016-10-06 19:35 | NUR ---
ALERT/AWAKE DENIES PAIN OR ANY NEEDS. IN CONTACT ISOLATION FOR CDIFF. IV IN R HAND WITH NS INFUSING AT 100ML/HR. ON TELEMETRY, MONITOR SHOWS 74 SR. ORIENTED TO CALL LIGHT FOR ANY NEEDS. LEFT DOOR OPEN TO MONITOR CLOSELY.
--- NOTE | 2016-10-06 21:10 | NUR ---
ADMIN SCHED MEDS AND NORCO 5 PO PER REQUEST FOR C/O LEG PAIN LEVEL 9 ON NUMBER SCALE. REQUESTED ASSISTANCE WITH OPENING SANDWICH PACKAGE.
[2016-10-07] VITALS: BP 121/51
--- NOTE | 2016-10-07 01:30 | NUR ---
RESTING WITH EYES CLOSED. RR EVEN U/L ON AT 2L/NC. NO S/S OF PAIN OR DISCOMFORT. CALL LIGHT IN REACH.
[2016-10-07 04:00] VITALS: BP 147/64
--- NOTE | 2016-10-07 04:45 | NUR ---
AWAKE DENIES ANY NEEDS. REPOSITIONED UP IN BED.
[2016-10-07 07:52] LABS: BASOPHILS 0.7 % (0-2); HEMATOCRIT 28.8 % (36.0-48.0); HEMOGLOBIN 9.9 g/dL (12-16); IMMATURE GRANULOCYTES 3.2 % (0-5); MCH 39.9 pg (26.0-34.0); MCHC 34.4 g/dL (31.0-37.0); MCV 116.1 fL (80.0-100.0); MEAN PLATELET VOLUME 11.4 fL (7.4-10.4); MONOCYTES 4.8 % (2-11); NEUTROPHILS 82.3 % (40-80); PLATELET COUNT 61 10x3/uL (130-400); RBC 2.48 10x6/uL (4.00-5.40); RDW 17.5 % (11.5-14.5); WBC 8.1 10x3/uL (4.8-10.8)
[2016-10-07 08:06] LABS: ALBUMIN 0.9 g/dL (3.4-5.0); ALKALINE PHOSPHATASE 228 U/L (46-116); ALT (SGPT) 19 U/L (10-68); BILIRUBIN - TOTAL 2.98 mg/dL (0.2-1.3); CALC OSMOLALITY 272 mosm/kg (275-300); CALCIUM 7.3 mg/dL (8.5-10.1); CARBON DIOXIDE 26.4 mmol/L (21.0-32.0); CHLORIDE - SERUM 106 mmol/L (98-107); CREATININE - SERUM 0.8 mg/dL (0.6-1.3); GLUCOSE 176 mg/dL (74-106); MAGNESIUM - SERUM 1.5 mg/dL (1.8-2.4); POTASSIUM - SERUM 4.4 mmol/L (3.5-5.1); PROTEIN - SERUM 5.7 g/dL (6.4-8.2); SODIUM 135 mmol/L (136-145); UREA NITROGEN 11 mg/dL (7-18); eGFR NON AFRICAN AMERICAN 77 mL/min (90-120)
[2016-10-07 08:26] VITALS: BP 142/72
--- NOTE | 2016-10-07 08:27 | NUR ---
AM ROUNDS - PT IS AWAKE AND ALERT. LI DRAINING CLEAR YELLOW. LEFT GROIN DRESSING CLEAN DRY AND INTACT. MONITOR SHOWING ST, HR 104. RIGHT HAND, NS @ 100CC/HR. NO NEEDS AT THSI TIME. WILL CONTINUE TO MONITOR.
[2016-10-07 11:58] VITALS: BP 99/42
[2016-10-07 15:53] VITALS: BP 107/49
--- NOTE | 2016-10-07 17:53 | NUR ---
IV - PT IV IN RIGHT HAND INFILTRATED. ISAAC BOSE, STUCK 2 TIMES WITH 22G. RIGHT AC BOTH TIMES ISAAC BARTON, STUCK 1 TIME WITH 22G. LEFT FA. ISAAC MCKEON, STUCK 1 TIME IN LEFT HAND WITH 20G. 1 TIME IN LEFT HAND (THUMB AREA) WITH A 20G. PT IV IS NOW IN LEFT HAND AROUND THUMB AREA. RESTARTED IV FLUIDS, NS AT 75CC/HR. REMOVED IV TO RIGHT HAND, CATH TIP INTACT. PT TOLERATED WELL.
--- NOTE | 2016-10-07 19:30 | NUR ---
SITTING UP IN BED, AAOX3, SKIN WARM AND DRY, RESP UNLABORED, IV PATENT TO LEFT HAND, LI DRAINING TO GRAVITY, NO DISTRESS NOTED
[2016-10-07 20:20] VITALS: BP 96/44
[2016-10-08 00:09] VITALS: BP 134/56
[2016-10-08 04:15] VITALS: BP 113/57
[2016-10-08 04:45] LABS: BASOPHILS 1.4 % (0-2); EOSINOPHILS 2.8 % (0-7); HEMATOCRIT 27.8 % (36.0-48.0); HEMOGLOBIN 9.5 g/dL (12-16); IMMATURE GRANULOCYTES 4.9 % (0-5); LYMPHOCYTES 10.5 % (15-50); MCH 39.7 pg (26.0-34.0); MCHC 34.2 g/dL (31.0-37.0); MCV 116.3 fL (80.0-100.0); MEAN PLATELET VOLUME 10.6 fL (7.4-10.4); MONOCYTES 8.1 % (2-11); NEUTROPHILS 72.3 % (40-80); PLATELET COUNT 57 10x3/uL (130-400); RBC 2.39 10x6/uL (4.00-5.40); RDW 17.8 % (11.5-14.5); WBC 7.1 10x3/uL (4.8-10.8)
[2016-10-08 04:57] LABS: INR 1.76 (0.85-1.17); PROTIME 20.5 SECONDS (11.6-15.0)
[2016-10-08 05:04] LABS: ALBUMIN 0.9 g/dL (3.4-5.0); ANION GAP 5.9 mmol/L (8-16); BILIRUBIN - TOTAL 2.59 mg/dL (0.2-1.3); CALCIUM 7.2 mg/dL (8.5-10.1); CARBON DIOXIDE 26.4 mmol/L (21.0-32.0); CREATININE - SERUM 0.9 mg/dL (0.6-1.3); PHENYTOIN (DILANTIN) 7.3 ug/mL (10.0-20.0); POTASSIUM - SERUM 4.3 mmol/L (3.5-5.1); PROTEIN - SERUM 5.7 g/dL (6.4-8.2)
[2016-10-08 07:23] VITALS: BP 117/55
[2016-10-08 12:09] VITALS: BP 120/56
[2016-10-08 16:10] VITALS: BP 122/60
[2016-10-08 21:38] VITALS: BP 98/48
--- NOTE | 2016-10-08 22:52 | NUR ---
INITIAL ROUNDS COMPETED AT 1920 HRS. PT RESTING WITH EYES CLOSED. RESP EVEN AND REGULAR. ASSESSMENT COMPLETED AT 1945 HRS. VSS. SR PER CM HR 62. PT IN CONTACT ISO FOR C-DILL. IV TO L HAND WITH NS AT 75CC/HR. IV PATENT. 1+ EDEMA NOTED TO FEET BILAT. PT DECLIES BRACE FOR R FEMUR STATING IT DOESN'T FIT. DRESSING TO BUTTOCK CLEAN, DRY AND INTACT. O2 2LNC. LI DRAINING YELLOW URINE. PT CURRENTLY RESTING WITH EYES CLOSED. RESP EVEN AND REGULAR. SR UP X2, CALL LIGHT WITHIN REACH.
--- NOTE | 2016-10-09 00:17 | NUR ---
PT RESTING WITH EYES CLOSED. RESP EVEN AND REGULAR. SR UP X2, CALL LIGHT WITHIN REACH.
--- NOTE | 2016-10-09 02:32 | NUR ---
PT RESTING WITH EYES CLOSED. RESP EVEN AND REGULAR. SR UP X2, CALL LIGHT WITHIN REACH.
[2016-10-09 03:13] VITALS: BP 107/48
--- NOTE | 2016-10-09 04:42 | NUR ---
DRESSING TO BUTTOCKS CHANGED. SKIN LELAND WITHOUT REDNESS. DRESSING PLACED OVER SKIN TAG TO R BUTTOCKS. L GROIN SRESSING CLEAN, DRY AND INTACT. BRUISING NOTED TO AREA. WILL CONTINUE TO MONITOR.
[2016-10-09 05:42] LABS: BASOPHILS 0.7 % (0-2); EOSINOPHILS 0.5 % (0-7); HEMATOCRIT 29.6 % (36.0-48.0); HEMOGLOBIN 9.9 g/dL (12-16); IMMATURE GRANULOCYTES 3.7 % (0-5); LYMPHOCYTES 8.6 % (15-50); MCH 39.1 pg (26.0-34.0); MCHC 33.4 g/dL (31.0-37.0); MEAN PLATELET VOLUME 11.4 fL (7.4-10.4); MONOCYTES 4.4 % (2-11); NEUTROPHILS 82.1 % (40-80); PLATELET COUNT 68 10x3/uL (130-400); RBC 2.53 10x6/uL (4.00-5.40); WBC 7.5 10x3/uL (4.8-10.8)
[2016-10-09 06:18] LABS: ALBUMIN 0.9 g/dL (3.4-5.0); ANION GAP 8.5 mmol/L (8-16); BILIRUBIN - TOTAL 3.04 mg/dL (0.2-1.3); CALCIUM 7.4 mg/dL (8.5-10.1); CREATININE - SERUM 0.9 mg/dL (0.6-1.3); MAGNESIUM - SERUM 1.3 mg/dL (1.8-2.4); PHOSPHOROUS 2.4 mg/dL (2.5-4.9); POTASSIUM - SERUM 4.5 mmol/L (3.5-5.1); PROTEIN - SERUM 5.9 g/dL (6.4-8.2)
[2016-10-09 06:46] VITALS: BP 125/55
[2016-10-09 08:25] VITALS: BP 137/48
[2016-10-09 13:03] VITALS: BP 145/57
[2016-10-09 17:08] VITALS: BP 118/52
--- NOTE | 2016-10-09 19:29 | NUR ---
ALERT/AWAKE WATCHING TV. IN CONTACT ISOLATION FOR CDIF. HAS O2 AT 2L/NC. RR 18 EVEN U/L. ON TELEMETRY, MONITOR SHOWS 67 SR. IV IN L HAND INTACT WITH NS INFUSING AT 30ML/HR. LI INTACT DRAINING TO GRAVITY. PLACED CALL LIGHT IN REACH FOR ANY NEEDS.
[2016-10-09 21:27] VITALS: BP 119/79
[2016-10-10 01:46] VITALS: BP 111/50
[2016-10-10 06:06] LABS: BASOPHILS 0.5 % (0-2); EOSINOPHILS 1.2 % (0-7); HEMATOCRIT 27.9 % (36.0-48.0); HEMOGLOBIN 9.5 g/dL (12-16); IMMATURE GRANULOCYTES 3.6 % (0-5); LYMPHOCYTES 10.7 % (15-50); MCH 40.1 pg (26.0-34.0); MCHC 34.1 g/dL (31.0-37.0); MCV 117.7 fL (80.0-100.0); MEAN PLATELET VOLUME 11.7 fL (7.4-10.4); MONOCYTES 8.2 % (2-11); NEUTROPHILS 75.8 % (40-80); PLATELET COUNT 67 10x3/uL (130-400); RBC 2.37 10x6/uL (4.00-5.40); RDW 18.7 % (11.5-14.5)
--- NOTE | 2016-10-10 06:15 | NUR ---
REC RESP UPDRAFT TX. DENIES ANY NEEDS.
[2016-10-10 06:24] VITALS: BP 132/59
[2016-10-10 06:34] LABS: ANION GAP 11.1 mmol/L (8-16); CALCIUM 7.6 mg/dL (8.5-10.1); CARBON DIOXIDE 24.4 mmol/L (21.0-32.0); CREATININE - SERUM 0.9 mg/dL (0.6-1.3); MAGNESIUM - SERUM 1.2 mg/dL (1.8-2.4); PHOSPHOROUS 2.7 mg/dL (2.5-4.9); POTASSIUM - SERUM 4.5 mmol/L (3.5-5.1)
[2016-10-10 08:00] VITALS: BP 135/56
[2016-10-10 11:59] VITALS: BP 118/48
[2016-10-10 15:53] VITALS: BP 113/50
--- NOTE | 2016-10-10 18:08 | OP ---
PATIENT NAME: ALBERTA MARIN MEDICAL RECORD: [id number] :53 LOCATION:D.M2 D.1 ADMISSION DATE:10/02/16 SURGEON: CONRADO MENDENHALL MD DATE OF OPERATION: 10/06/2016 PROCEDURES: 1. PTCA stent LAD. 2. PTCA diagonal. 3. Left heart catheterization. 4. Selective coronary angiography. 5. Left ventriculogram. INDICATION: Coronary artery disease, myocardial infarction. DESCRIPTION OF PROCEDURE: After informed consent was obtained and after a detailed explanation of risks, benefits as well as alternative therapies, the patient elected to proceed with angiogram and angioplasty. The right femoral area was prepped and draped in normal sterile fashion. The right femoral artery was cannulated via modified Seldinger technique with placement of 6-German sheath. All catheters exchanged through this sheath. FINDINGS: Left ventriculogram was performed in the standard 30-degree AGUILERA view reveals apical hypokinesis, ejection fraction 40%. SELECTIVE CORONARY ANGIOGRAPHY: 1. Left main showed no significant angiographic disease. 2. Left anterior descending has a 90% stenosis times 2 in the mid vessel. 3. Left circumflex shows moderate irregularities, but no flow-limiting stenosis. 4. Right coronary has moderate irregularities, but no flow-limiting stenosis. PTCA STENT OF THE LAD: The stents used were 2.5 x 12 and 2.5 x 18 both Integrity stents, this caused plaque shift into the diagonal. The diagonal was addressed with a 2.5 balloon. Result was 0% residual throughout. OVERALL IMPRESSION: Successful percutaneous transluminal coronary angioplasty stent of the left anterior descending going from 90% initial stenosis to 0% residual. TRANSINT:[id number] Voice Confirmation ID: [id number] DOCUMENT ID: [id number] CONRADO MENDENHALL MD at 1808 CC: [id number] DICTATION DATE: 10/06/16 1457 MANAGER PRIVATE: 10/06/16 2150 ADM IN [place] [id number] [place] [address]
--- NOTE | 2016-10-10 19:43 | NUR ---
ALERT/AWAKE TALKING ON PHONE. DENIES ANY NEEDS OR DISCOMFORTS. IN CONTACT ISOLATION FOR CDIF. IV IN L HAND INTACT WITH NS INFUSING AT 10ML/HR. LI INTACT, PATENT DRAINING NADIR URINE. CALL LIGHT IN REACH.
--- NOTE | 2016-10-10 20:20 | NUR ---
ADMIN SCHED MEDS. REQUESTED A COLA AND CRACKERS.
[2016-10-10 21:07] VITALS: BP 138/55
[2016-10-11 01:38] VITALS: BP 126/53
--- NOTE | 2016-10-11 04:33 | NUR ---
ADMIN NORCO 5 PO PER REQUEST FOR C/O LEG PAIN LEVEL 10 ON NUMBER SCALE. DESCRIBED ACHING AND THROBBING. NO OTHER NEEDS VOICED.
[2016-10-11 04:40] LABS: BASOPHILS 0.6 % (0-2); EOSINOPHILS 1.9 % (0-7); HEMATOCRIT 26.5 % (36.0-48.0); HEMOGLOBIN 9.4 g/dL (12-16); LYMPHOCYTES 14.9 % (15-50); MCH 41.6 pg (26.0-34.0); MCHC 35.5 g/dL (31.0-37.0); MCV 117.3 fL (80.0-100.0); MEAN PLATELET VOLUME 11.1 fL (7.4-10.4); MONOCYTES 12.1 % (2-11); NEUTROPHILS 67.5 % (40-80); PLATELET COUNT 78 10x3/uL (130-400); RBC 2.26 10x6/uL (4.00-5.40); RDW 18.8 % (11.5-14.5); WBC 6.7 10x3/uL (4.8-10.8)
[2016-10-11 05:12] LABS: ALBUMIN 0.8 g/dL (3.4-5.0); ANION GAP 6.8 mmol/L (8-16); BILIRUBIN - TOTAL 2.42 mg/dL (0.2-1.3); CALCIUM 7.5 mg/dL (8.5-10.1); CARBON DIOXIDE 27.9 mmol/L (21.0-32.0); CREATININE - SERUM 0.9 mg/dL (0.6-1.3); MAGNESIUM - SERUM 1.5 mg/dL (1.8-2.4); PHOSPHOROUS 2.6 mg/dL (2.5-4.9); PROTEIN - SERUM 5.6 g/dL (6.4-8.2)
[2016-10-11 05:14] LABS: POTASSIUM - SERUM 3.7 mmol/L (3.5-5.1)
[2016-10-11 05:32] VITALS: BP 120/60
--- NOTE | 2016-10-11 07:30 | NUR ---
PATIENT IS RESTING QUIETLY WITH EYES CLOSED. SHE AWAKENS EASILY TO VOICE. DISCUSSED THE PLAN FOR THE DAY. SHE DENIED PAIN/ NEEDS AT THIS TIME. IVF PATENT TO THE LEFT HAND. LI CATHETER IS PATENT TO THE BEDSIDE DRAINAGE BAG.
[2016-10-11 08:00] VITALS: BP 125/59
[2016-10-11 12:00] VITALS: BP 119/55
--- NOTE | 2016-10-11 12:10 | NUR ---
PATIENT GIVEN HER MEDICATIONS. SHE WAS SLEEPING QUIETLY WITH EYES CLOSED BUT WOKE EASILY TO VOICE.
--- NOTE | 2016-10-11 15:00 | NUR ---
Nutrition follow-up: Diet: low sodium PO intake ~50% of meals Labs reviewed Wt: 177# Pt continues in isolation for +C.Diff Will continue to provide food choices and honor food preferences. RDN following.
--- NOTE | 2016-10-11 15:10 | NUR ---
PATIENT RESTING QUIETLY WITH EYES CLOSED. NO NEED SNOTED.
[2016-10-11 15:59] VITALS: BP 109/50
[2016-10-11 20:44] VITALS: BP 118/55
[2016-10-12 03:47] VITALS: BP 127/53
[2016-10-12 05:39] LABS: BASOPHILS 1.5 % (0-2); EOSINOPHILS 2.2 % (0-7); HEMATOCRIT 28.8 % (36.0-48.0); HEMOGLOBIN 9.8 g/dL (12-16); IMMATURE GRANULOCYTES 2.4 % (0-5); LYMPHOCYTES 15.4 % (15-50); MCH 40.2 pg (26.0-34.0); MEAN PLATELET VOLUME 10.5 fL (7.4-10.4); MONOCYTES 7.3 % (2-11); NEUTROPHILS 71.2 % (40-80); PLATELET COUNT 77 10x3/uL (130-400); RBC 2.44 10x6/uL (4.00-5.40); RDW 18.8 % (11.5-14.5); WBC 5.5 10x3/uL (4.8-10.8)
[2016-10-12 06:04] LABS: INR 1.76 (0.85-1.17); PROTIME 20.5 SECONDS (11.6-15.0)
[2016-10-12 06:28] LABS: ALBUMIN 0.8 g/dL (3.4-5.0); ALKALINE PHOSPHATASE 244 U/L (46-116); ALT (SGPT) 17 U/L (10-68); CALC OSMOLALITY 279 mosm/kg (275-300); CALCIUM 7.6 mg/dL (8.5-10.1); CARBON DIOXIDE 28.5 mmol/L (21.0-32.0); CHLORIDE - SERUM 105 mmol/L (98-107); CREATININE - SERUM 0.8 mg/dL (0.6-1.3); GLUCOSE 128 mg/dL (74-106); MAGNESIUM - SERUM 1.3 mg/dL (1.8-2.4); PHOSPHOROUS 2.6 mg/dL (2.5-4.9); POTASSIUM - SERUM 4.2 mmol/L (3.5-5.1); PROTEIN - SERUM 5.9 g/dL (6.4-8.2); SODIUM 138 mmol/L (136-145); UREA NITROGEN 17 mg/dL (7-18); eGFR NON AFRICAN AMERICAN 77 mL/min (90-120)
[2016-10-12 08:34] VITALS: BP 122/54
--- NOTE | 2016-10-12 09:07 | NUR ---
AM ROUNDS - PT AWAKE IN BED. LI DRAINING DARK YELLOW. PT C/O LOWER RIGHT SIDE ABD PAIN. YELLOW BAND ON. CALL TRIMBLE IN USE. IV TO LEFT HAND, NS @ 30CC/HR. BRACE TO RIGHT LEG. NO FUTHER NEEDS AT THIS TIME. WILL CONTINUE TO MONITOR
[2016-10-12 11:53] VITALS: BP 122/44
[2016-10-12 15:32] VITALS: BP 110/46
[2016-10-12 20:00] VITALS: BP 109/55
[2016-10-13] VITALS: BP 112/52
[2016-10-13 04:00] VITALS: BP 113/51
[2016-10-13 08:03] VITALS: BP 126/44
--- NOTE | 2016-10-13 08:16 | NUR ---
AM ROUNDS - PT APPEARS TO BE SLEEPING. EQUAL AND NON LABORED BREATHING. LI DRAINING DARK YELLOW. BRACE TO RIGHT LEG. PT IS ON CONTACT ISOLATION. WILL CONTIUE TO MONITOR.
--- NOTE | 2016-10-13 08:52 | NUR ---
IV ACCESS-22 GAUGE INSERTED IN RIGHT WRIST AREA AFTER MULTIPLE ATTEMPTS. RENALDO RUSHING RN
--- NOTE | 2016-10-13 10:10 | NUR ---
Patient Name: ALBERTA MARIN Admission Status: ER Accout number: [id number] Admission Date: 10-02-2016 : 1955 Admission Diagnosis:CHEST PAIN, UNSPECIFIED Attending: VAN Current LOS: 11 Anticipated DC Date: 10-14-2016 Planned Disposition: Home Primary Insurance: MEDICAID [place] Discharge Planning Comments: CM MET WITH PATIENT TO ASSESS DISCHARGE PLANNING/NEEDS. PATIENT STATED THAT SHE WOULD LIKE TO RETURN HOME, BUT WHERE SHE LIVES SHE HAS TO CLIMB UP 17 STEPS AND HER FINANCE HAS TO ALMOST CARRY HER UP THEM. SHE STATED THAT SHE FEELS SHE NEEDS SOME SORT OF THERAPY, BUT NONE HAS BEEN OFFERED TO HER. SHE STATED THAT SHE IS REQUIRING HELP WITH BATHING, COOKING, CLEANING, AND TRANSFERING, AND HAS SINCE SHE WAS LAST IN THE HOSPITAL (<[address] [facility]). SHE HAS EXPRESSED CONCERNS OF HER FREQUENT FALLS WITH LAST FALL RESULTING IN FRACTURE. SHE FEELS HER HOME ENVIRONMENT IS SAFE, BUT SHE IS NOT SAFE. STATED HER FIANCE ROSA MARIA THOMAS, [phone], WILL BE HER TRANSPORTATION HOME. PATIENT STATED SHE WOULD BE WILLING FOR ANY HELP CM COULD PROVIDE. SPOKE WITH LENCHO STOVER ([phone]), WITH [facility], ABOUT PATIENT, ONCE PATIENTS ZAK BRINGS UP HER SOCIAL SECURITY CARD SO THAT WE HAVE HER CORRECT NUMBER, WE WILL FAX PATIENTS INFORMATION TO HER ([phone]) AND SHE WILL GET BACK WITH US ABOUT ABILITY TO TAKE PATIENT. CM WILL CONTINUE TO FOLLOW AND ASSIST NEEDED WITH DISCHARGE PLANNING/NEEDS. Senior Sas Developer: Karolina Morris Is the patient Alert and Oriented? Yes * How many steps to enter\\exit or inside your home? 17 * PCP NONE * Pharmacy NONE "[facility] CLO[facility] AT THE TIME" * Preadmission Environment Home with Family * ADLs Partial Dependent * Partial ADLs (Assistance needed) Ambulation Bathing Transfers * Equipment Walker * List name and contact numbers for known caregivers / representatives who currently or will assist patient after discharge: ZAK: ROSA MARIA THOMAS, [phone] * Additional services required to return to the preadmission environment? Yes * Can the patient safely return to the preadmission environment? No * Has this patient been hospitalized within the prior 30 days at any hospital? Yes Grand Total: 0
--- NOTE | 2016-10-13 11:08 | NUR ---
PATIENT DOES NOT KNOW HER SSN. HAVE SPOKE WITH OUR BUSINESS OFFICE TO SEE IF THEY CAN ASSIST THROUGH HER INSURANCE (MEDICAID) IN OBTAINING A NUMBER. THEY WERE NOT ABLE. HAVE ATTEMPTED TO REACH PATIENT ZAK ROSA MARIA THOMAS AT [phone], AND HIS PHONE DOES NOT HAVE VOICE MAIL SET UP. ASKED PATIENT ABOUT THE PHYSICIAN SHE SAW PRIOR TO MOVING TO [place] AND SHE STATED "I CAN'T REMEMBER". EXPLAINED TO THE PATIENT THAT WITHOUT HER SOCIAL SECURITY NUMBER, WE WOULD NOT BE ABLE TO SET HER UP WITH HOME HEALTH OR WITH A POSSIBLE REHAB. SHE SAID "OH" AND AT THIS SHE SAID SHE CAN'T REMEMBER.
--- NOTE | 2016-10-13 11:15 | NUR ---
SPOKE WITH MARCOS THOMAS, HE WILL RUN HOME AND GET THE PATIENTS SSN AND CALL ME BACK.
--- NOTE | 2016-10-13 11:34 | NUR ---
SPOKE WITH ROSA MARIA THOMAS, PATIENT ZAK. HE GAVE ME THE PATIENT SOCIAL SECURITY NUMBER. THIS INFORMATION WAS RELAYED TO GREG IN ADMISSIONS AND UPDATED ON HER FACE SHEET. INFORMATION WILL BE GATHERED AND SENT TO ISAAC MUSA WITH [facility].
[2016-10-13 11:48] VITALS: BP 132/53
--- NOTE | 2016-10-13 13:03 | NUR ---
PATIENT STATED WILLING TO GO TO REHAB UNIT, BUT IF THEY DO NOT ACCEPT HER, SHE IS WILLING TO GO HOME WITH HOME HEALTH. HOME HEALTH CARE PATIENT CHOICE FORM SIGNED WITH PATIENT TOP TWO CHOICES. WILL TALK WITH HER CHOICES.
--- NOTE | 2016-10-13 13:08 | NUR ---
SPOKE WITH [facility] [phone]. EXPLAINED THE DISCHARGE PLANS WITH THEM AND EXPLAINED THAT IF SHE CAN GET INTO [facility], THAT IS HER FIRST CHOICE, BUT WANTING TO TRY TO LINE SOMETHING UP IF THEY DO NOT ACCEPT HER. SHE STATED TO FAX THE PATIENTS INFORMATION OVER, BUT IT WOULD BE SUNDAY BEFORE THEY WERE ABLE TO SEE HER.
[2016-10-13] MEDS ORDERED: VASOTEC5 MG PO (15:16)
[2016-10-13] MEDS ORDERED: TOPROL XL25 MG PO (15:16)
[2016-10-13] MEDS ORDERED: ALDACTONE25 MG PO (15:16)
[2016-10-13] MEDS ORDERED: ASPIRIN325 MG PO (15:17)
[2016-10-13] MEDS ORDERED: MAG-OX 400 MG400 MG PO (15:17)
[2016-10-13] MEDS ORDERED: DILANTIN100 MG PO (15:17)
[2016-10-13] MEDS ORDERED: MUCINEX DM ER1 EAC1 PO (15:18)
[2016-10-13] MEDS ORDERED: TESSALON PERLE100 MG PO (15:18)
[2016-10-13] MEDS ORDERED: LASIX40 MG PO (15:19)
[2016-10-13] MEDS ORDERED: K-DUR20 MEQ PO (15:20)
[2016-10-13] MEDS ORDERED: PERCOCET 5-3251 TAB PO (15:24)
[2016-10-13 15:38] VITALS: BP 134/54
[2016-10-13] MEDS ORDERED: PLAVIX75 MG PO (17:57)
--- NOTE | 2016-10-13 18:33 | NUR ---
Patient Name: ALBERTA MARIN Encounter No: [id number] : 1955 Primary Insurance: MEDICAID [place] Anticipated DC Date: 10-14-2016 Planned Disposition: Home with Home Health External Planned Provider: [facility] DCP follow-up note: CM RECEIVED CALL FROM [facility], PT HAS NO MEDICAID DAYS FOR INPATIENT REHAB, THEY WILL NOT ACCEPT PT. CM SPOKE TO PT WHO WILL ACCEPT HOME HEALTH WITH [facility], REPORTS HER SISTER IN LAW, KEVIN WILL PICK HER UP AT DISCHARGE. CM CALLED SARIKA AT [facility], [phone], WHO WILL PLACE PT ON SCHEDULE FOR SUNDAY FOR ADMIT; CM SPOKE TO PT WHO IS AGREEABLE TO THIS. CM FAXED DISCHARGE INFORMATION TO [facility], . MELINA SPOKE TO PT'S FIANCE, HOSSEIN THOMAS, , WHO REPORTS NOT HAVING CAR AND CANNOT GET PT UP THE STAIRS TO THEIR APARTMENT. CM ATTEMPTED TO EXPLORE OTHER RESOUCES, FRIENDS OR FAMILY, THAT PT MAY STAY WITH. FLOYD REPORTS PT'S FATHER LIVES ON THE OTHER SIDE [facility] BUT HE DOES NOT KNOW IF PT WILL GO THERE. [employer] PROVIDED KEVIN'S PHONE NUMBER, . MELINA SPOKE TO PT WHO WILL NOT GO TO A FAMILY MEMBERS' HOME, WILL NOT GO TO SENIOR CARE FACILITY FOR PENITENTIARY CARE AND STATES SHE WANTS TO GO HOME TO HER APARTMENT. MELINA CALLED PT'S SISTER IN LAW, KEVIN, , DISCUSSED ABOVE. KEVIN WILL SPEAK TO [employer] AND TRY TO ARRANGE TRANSPORT HOME FOR PT. THEY CALLED AMBULANCE SERVICES LAST TIME WHO CARRIED PT UP THE STAIRS AT NO COST. CM NOTIFIED PT WHO WAS IN AGREEMENT WITH DISCHARGE PLAN. NURSE NOTIFIED. Esvin Patel, CASE MANAGEMENT
--- NOTE | 2016-10-13 18:59 | NUR ---
SON CALLED AND GAVE PT'S SISTER'S (KEVIN) PHONE NUMBER TO CALL WHEN PT IS READY TO GO HOME. PHONE NUMBER GIVEN, [phone], WAS A NON WORKING NUMBER. CALLED SON BACK TO VERIFY AND THERE WAS NO ANSWER.
--- NOTE | 2016-10-13 19:00 | NUR ---
RECEIVED IN REPORT PATIENT IS TO BE DISCHARGED. DISCHARGE PAPERS ARE DONE AND NEED TO BE SIGNED. WAITING FOR FAMILY MEMBER TO CALL WITH TIME TO PICK HER UP.
--- NOTE | 2016-10-13 19:30 | NUR ---
ALERT/AWAKE STATED HER FIANCE CALLED TO INFORM THAT HER [id number] WILL BE PICKING HER UP TONIGHT.
--- NOTE | 2016-10-13 19:40 | NUR ---
REMOVED LI AND DRESSED PATIENT TO BE READY FOR FAMILY TO LOCKER ROOM ATTENDANT.
--- NOTE | 2016-10-13 23:00 | NUR ---
TRIED SEVERAL TIMES CALLING PATIENT'S FIANCE AND [id number]. BOTH OF THEIR PHONES MESSAGE STATES TO TRY YOUR CALL AGAIN AT A LATER TIME. TOLD PATIENT AND SHE SAID HER FIANCE CALLED AND SAID HE WOULD PICK HER UP TONIGHT. WILL INFORM VIRIDIANA OLIVA.
[2016-10-14] VITALS: BP 126/53
[2016-10-14 03:09] LABS: APPEARANCE CLOUDY (CLEAR); COLOR DK YELLOW (YELLOW); GLUCOSE NEGATIVE (NEGATIVE); KETONE NEGATIVE (NEGATIVE); LEUKOCYTE ESTERASE NEGATIVE (NEGATIVE); NITRITE NEGATIVE (NEGATIVE); PROTEIN NEGATIVE (NEGATIVE); SPECIFIC GRAVITY 1.015 (1.005-1.020)
[2016-10-14 03:10] LABS: BACTERIA NONE SEEN /hpf (NONE SEEN); BILIRUBIN 2+ (NEGATIVE); EPITHELIAL CELLS OCC /hpf (0-5); WHITE CELLS - URINE 0-5 /hpf (0-5)
--- NOTE | 2016-10-14 03:11 | NUR ---
ASSISTED TO [facility] TO VOID. TOOK URINE SAMPLE TO LAB PER ORDER.
[2016-10-14 06:40] LABS: ALBUMIN 0.8 g/dL (3.4-5.0); ALKALINE PHOSPHATASE 259 U/L (46-116); ALT (SGPT) 17 U/L (10-68); AMYLASE - SERUM 88 U/L (25-115); BILIRUBIN - TOTAL 2.65 mg/dL (0.2-1.3); CALC OSMOLALITY 279 mosm/kg (275-300); CALCIUM 7.4 mg/dL (8.5-10.1); CARBON DIOXIDE 30.1 mmol/L (21.0-32.0); CHLORIDE - SERUM 105 mmol/L (98-107); CREATININE - SERUM 0.8 mg/dL (0.6-1.3); GLUCOSE 135 mg/dL (74-106); LIPASE 261 U/L (73-393); POTASSIUM - SERUM 4.6 mmol/L (3.5-5.1); PROTEIN - SERUM 5.9 g/dL (6.4-8.2); SODIUM 138 mmol/L (136-145); UREA NITROGEN 18 mg/dL (7-18); eGFR NON AFRICAN AMERICAN 77 mL/min (90-120)
[2016-10-14 08:00] VITALS: BP 120/44
--- NOTE | 2016-10-14 08:01 | NUR ---
AM ROUNDS - PT APPEARS TO BE SLEEPING WITH EQUAL AND NON LABORED BREATHING. NS @ 30CC/HR. WILL CONTINUE TO MONIOTR
--- NOTE | 2016-10-14 08:16 | NUR ---
1669 - CALLED SONINDIGO [phone], AND RECORDING STATED THAT "THE PERSON YOU ARE CALLING IS NOT ACCEPTING CALLS AT THIS TIME" CALLED SISTER, KEVIN [phone], AND RECORDING STATED THAT "THE PERSON YOU ARE TRYING TO REACH IS NOT ACCEPTING CALLS AT THIS TIME."
--- NOTE | 2016-10-14 08:19 | NUR ---
0820 - CALLED SON, PAWEL [phone] AND AUTOMATED RECORDING STATES HE IS NOT ACCEPTING CALLS AT THIS TIME. CALLED SITER, KEVIN [phone] NAD QUTOMATED RECORDING STATES SHE IS NOT STAKING CALLS AT THIS TIME. CHARGE NURSE AND HOUSE SUP NOTIFIED. I WAS TOLD THAT A CM WILL BE HERE TODAY.
--- NOTE | 2016-10-14 09:25 | NUR ---
CALLED FAMILY TO D/C PT. ROSA MARIA, SON, PHONE IS ON AND CONTINUES TO RING. SISTER, KEVIN, PHONE IS STILL OFF. WILL CONTINUE TO CALL.
[2016-10-14 12:00] VITALS: BP 120/80
--- NOTE | 2016-10-14 13:15 | NUR ---
Patient with discharge orders for home last PM. Family had indicated , they were on the way to pick her up. The staff called late into the evening and early this AM. No answers, no call backs. CM also called this AM with no responses from Shubham Barakat or Ivy, her sister. Telephoned the [place] [employer]. Spoke with Giulia. Await CB. The patient cannot be assist. She is lethargic.
--- NOTE | 2016-10-14 14:55 | NUR ---
Telephoned the [place] Police dept x2 as follow-up. No answer from either non-emergent phone numbers. TC to [place] [employer] . Spoke with Ritesh. Report taken. She will refer to a title supervisor. Await response.
[2016-10-14 16:00] VITALS: BP 116/47
[2016-10-14 20:00] VITALS: BP 125/51
--- NOTE | 2016-10-14 21:55 | NUR ---
HS MEDS GIVEN. PT VERY DESPONDENT OVER SITUATION WITH SON NOT BEING FINDABLE TO PICK HER UP. PT STARTED CRYING, TEARS ROLLLING DOWN HER FACE. COMFORTED PATIENT. DISCUSSED SITUATION WITH HER, ENCOURAGED HER TO SEE THAT THIS WILL BE RESOLVED AND WE WILL CONTINUE TO PROVIDED CARE TO HER UNTIL THERE IS A RESOLUTION. TALKED WITH PATIENT ABOUT HER NEEDING TO EAT FOOD AND DRINK FLUIDS TO PROMOTE HEALING OF THE FRACTURE IN HER LEG. PROVIDED JUICE, MILK AND SNACK FOR PATIENT SINCE HER DINNER TRAY WAS UNTOUCHED BESIDE HER. SHE DECLINED TO HAVE IT HEATED UP. PIV TO RIGHT WRIST WITH NS @ 30ML/HR. O2 SAT 88%, SO PLACED PT BACK ON O2 @ 2L/NC. MONITOR AND CPOC.
[2016-10-15] VITALS: BP 118/55
[2016-10-15 08:00] VITALS: BP 113/53
[2016-10-15 12:00] VITALS: BP 117/48
--- NOTE | 2016-10-15 15:17 | NUR ---
ALERT AND ORIENTED X4. RESTING IN BED. LINEN AND BED BATH COMPLETE. PHYSICAL THERAPY INITIATES ROM EXERCISES IN BED. STANDS WITH WALKER FOR 1 MINUTE. COMPLAINS OF ARM TREMORS BILATERALLY. DENIES ANY NEEDS. CONTINUE PLAN OF CARE. BED LOCKED AND LOW. CALL LIGHT IN REACH. TWO SIDERAILS UP. BOX ALARM ON.
--- NOTE | 2016-10-15 17:48 | NUR ---
SITTING UP IN BED EATING DINNER. ALERT AND ORIENTED X4. NO CHANGE. CONTINUE PLAN OF CARE AND SAFETY PRECAUTIONS. PREPARE SHIFT CHANGE REPORT.
--- NOTE | 2016-10-15 19:50 | NUR ---
Late Entry 10/14 1799 CM received telephone call from [employer]. The case has been accepted as of 10/14/16. Patient's " " "Shubham" called this PM at 1900. Requesting information about the patient. CM advised him that multiple telephone calls had been made on Sunday PM and Sunday AM thru the PM to андрей and Ivy with no answer. MELINA advised him that I had called the [place] Police to go to the apartment. MELINA also advised him that I had called [employer] to report the situation as the patient has been abandoned. Shubham states no one called him. MELINA advised multiple persons had telephoned him with no response. MELINA transferred him to the patient's primary nurse for update. She advises she spoke with him and transferred him to the patient's phone.
[2016-10-15 20:00] VITALS: BP 118/55
[2016-10-16 04:00] VITALS: BP 128/22
[2016-10-16 05:45] LABS: BASOPHILS 1.4 % (0-2); EOSINOPHILS 1.6 % (0-7); HEMATOCRIT 27.6 % (36.0-48.0); HEMOGLOBIN 9.1 g/dL (12-16); IMMATURE GRANULOCYTES 0.8 % (0-5); LYMPHOCYTES 16.8 % (15-50); MCH 40.1 pg (26.0-34.0); MCV 121.6 fL (80.0-100.0); MEAN PLATELET VOLUME 10.5 fL (7.4-10.4); NEUTROPHILS 69.4 % (40-80); PLATELET COUNT 76 10x3/uL (130-400); RBC 2.27 10x6/uL (4.00-5.40); RDW 20.3 % (11.5-14.5)
[2016-10-16 05:55] LABS: INR 1.61 (0.85-1.17); PROTIME 19.1 SECONDS (11.6-15.0)
[2016-10-16 06:04] LABS: ALBUMIN 0.9 g/dL (3.4-5.0); ANION GAP 5.9 mmol/L (8-16); BILIRUBIN - TOTAL 2.69 mg/dL (0.2-1.3); CALCIUM 7.8 mg/dL (8.5-10.1); CARBON DIOXIDE 32.1 mmol/L (21.0-32.0); CREATININE - SERUM 0.9 mg/dL (0.6-1.3); PROTEIN - SERUM 6.2 g/dL (6.4-8.2)
[2016-10-16 09:43] VITALS: BP 141/86
[2016-10-16 12:23] VITALS: BP 153/54
--- NOTE | 2016-10-16 13:00 | NUR ---
SLEEPING IN BED. AROUSES EASILY WHEN SPOKEN TO. PHYSICAL THERAPY INITIATES ROM EXERCISES. POOR PARTICIPATION. COMPLAINS OF RT LEG PAIN WITH MOVEMENT. EXPRESSES FEELING SAD BECAUSE SON SAID HE WAS COMING TO SEE HER LAST NIGHT AND DIDN'T. STILL HAS NOT SHOWN. DENIES ANY NEEDS. CONTINUE PLAN OF CARE. BED LOCKED AND LOW. CALL LIGHT IN REACH. TWO SIDERAILS UP.
[2016-10-16 17:06] VITALS: BP 140/73
[2016-10-16 19:45] VITALS: BP 122/57
--- NOTE | 2016-10-16 21:27 | NUR ---
HS MEDS GIVEN WITH FRESH ICE WATER, PT DENIES PAIN OR NEEDS, BED LOW, CL IN REACH, WILL CONT TO MONITOR.
--- NOTE | 2016-10-17 01:06 | NUR ---
TREE SURGEON AT BED SIDE, BATH AND LINEN CHANGE COMPLETE.
[2016-10-17 01:51] VITALS: BP 110/53
--- NOTE | 2016-10-17 03:17 | NUR ---
RESTING WITH EYES CLOSED, RESPERATIONS EVEN, NO S/S DISTRESS NOTED.
[2016-10-17 05:48] VITALS: BP 128/52
[2016-10-17 08:00] VITALS: BP 127/46
--- NOTE | 2016-10-17 11:02 | NUR ---
LETHARGIC. HARD TO AROUSE. NEW ONSET OF INCONTINENCE. WHEN TAKING MEDICATIONS DIFFICULT TO SUCK ON STRAW. BED BATH AND LINEN CHANGE COMPLETE. NOTIFY KEVIN [facility] STAR PRE PRESS PROOFER OF LOC CHANGE. CONTINUE PLAN OF CARE. BED LOCKED AND LOW. CALL LIGHT IN REACH. TWO SIDERAILS UP. BOX ALARM ON.
[2016-10-17 11:35] LABS: BASOPHILS 0.9 % (0-2); EOSINOPHILS 0.7 % (0-7); HEMATOCRIT 30.1 % (36.0-48.0); IMMATURE GRANULOCYTES 0.7 % (0-5); MCH 40.8 pg (26.0-34.0); MCHC 33.2 g/dL (31.0-37.0); MCV 122.9 fL (80.0-100.0); MEAN PLATELET VOLUME 10.7 fL (7.4-10.4); MONOCYTES 6.7 % (2-11); PLATELET COUNT 81 10x3/uL (130-400); RBC 2.45 10x6/uL (4.00-5.40); RDW 20.5 % (11.5-14.5); WBC 4.3 10x3/uL (4.8-10.8)
[2016-10-17 11:40] LABS: CALC OSMOLALITY 282 mosm/kg (275-300); CALCIUM 7.7 mg/dL (8.5-10.1); CARBON DIOXIDE 32.5 mmol/L (21.0-32.0); CHLORIDE - SERUM 105 mmol/L (98-107); CREATININE - SERUM 0.8 mg/dL (0.6-1.3); GLUCOSE 148 mg/dL (74-106); POTASSIUM - SERUM 4.3 mmol/L (3.5-5.1); SODIUM 139 mmol/L (136-145); UREA NITROGEN 17 mg/dL (7-18); eGFR NON AFRICAN AMERICAN 77 mL/min (90-120)
[2016-10-17 11:58] VITALS: BP 129/55
--- NOTE | 2016-10-17 14:07 | NUR ---
Nutrition follow-up: Diet: ADA consistent CHO PO intake ~25% of meals; pt is upset over family issues at this time. Labs reviewed Wt: 177# Will continue to provide food choices and honor food preferences. RDN will order Ensure with meals. Following.
[2016-10-17 16:00] VITALS: BP 146/61
[2016-10-17 21:21] VITALS: BP 119/45
--- NOTE | 2016-10-17 23:36 | NUR ---
NURSE ROUNDS 21:30 - PT LYING IN BED, EASILY ROUSABLE TO VERBAL STIMULI, BUT DISORIENTED INITIALLY. PT DENIES ANY NEEDS. PT HAS DIFFICULTY SWALLOWING, AND REQUIRES COACHING TAKING HER PO MEDICATIONS, ESPECIALLY USING A STRAW. I ENDED UP ADMINISTERING PTS MEDS WITH PUDDING, PT WAS UNABLE TO SWALLOW. AFTER SEVERAL MINUTES PT WAS ABLE TO SIP THROUGH A STRAW, BUT STILL REQUIRED REMAINDER OF MEDS WITH PUDDING. PT DENIES ANY NEEDS. CONTINUE TO MONITOR CLOSELY. BED LOW, CALL LIGHT IN REACH, SIDE RAILS X 2, HOB 35 DEGREES.
[2016-10-18 01:26] VITALS: BP 126/56
[2016-10-18 04:59] VITALS: BP 137/58
--- NOTE | 2016-10-18 06:40 | NUR ---
PT LYING IN BED, EYES CLOSED, RESPIRATIONS EVEN AND UNLABORED. PT IS ROUSABLE TO VERBAL STIMULI, MILDLY CONFUSED AT FIRST. PT DENIES ANY NEEDS. CONTINUE TO MONITOR CLOSELY.
--- NOTE | 2016-10-18 07:58 | NUR ---
AM ROUNDS - PT APPEARS TO BE SLEEPING WITH EQUAL AND NON LABORED BREATHS. 2L OF O2 VIA NC. RIGHT WRIST IV, SL. PT IS ON CONTACT ISOLATION, C-DIFF ANTIGEN. WILL CONTINUE TO MONITOR.
[2016-10-18 08:00] VITALS: BP 135/49
--- NOTE | 2016-10-18 11:55 | NUR ---
Patient Name: ALBERTA MARIN Encounter No: [id number] : 1955 Primary Insurance: MEDICAID [place] Anticipated DC Date: 10-14-2016 Planned Disposition: [facility] External Planned Provider: ANY ACCEPTING FACILITY DCP follow-up note: CM SPOKE TO PT IN ROOM REGARDING DISCHARGE PLANNING AND NEEDS. CM DISCUSSED SENIOR CARE CARE PLACEMENT IN [facility]. PT HAS NOT HEARD FROM HER FAMILY/SIGNIFICANT OTHER OVER THE WEEKEND. PT UNDERSTANDS SENIOR CARE CARE PLACEMENT IN [facility] AND WOULD LIKE MELINA TO START LOOKING FOR A FACILITY SHE IS NOT GOING TO BE ABLE TO HOME TO HER APARTMENT SHE WILL BE HOME ALONE DURING THE DAY WHILE INDIGO IS WORKING AND SHE IS NOT ABLE TO GET UP THE STAIRS TO THE APARTMENT. PT HAS NO PREFERENCE ON FACILITY IN [place]. PT REPORTED INABILITY TO SIGN CHOICE LETTER. PT ASKED MELINA TO NOTIFY [facility]. CM CALLED [facility], , DISCUSSED SENIOR CARE CARE PLACEMENT, [facility] HE HAS A FAMILY MEMBER THAT WORKS THERE. [facility] REPORTS HE WILL ASSIST WITH FILLING OUT ADMISSION PAPERWORK AND PROVIDE FINANCIAL INFORMATION THAT IS NEEDED TO THE FACILITY. M[facility]INA [facility], AND TO [facility], [facility] AND [facility]IA RAVI AT [phone]. MELINA WAITING ADMISSION SCREENINGS FOR [facility] FROM [facility], [facility], [facility]. Esvin Patel, CASE MANAGEMENT
[2016-10-18 11:57] VITALS: BP 137/61
[2016-10-18 12:29] LABS: BASOPHILS 1.4 % (0-2); HEMATOCRIT 30.5 % (36.0-48.0); HEMOGLOBIN 10.1 g/dL (12-16); IMMATURE GRANULOCYTES 0.7 % (0-5); LYMPHOCYTES 19.3 % (15-50); MCH 41.2 pg (26.0-34.0); MCHC 33.1 g/dL (31.0-37.0); MCV 124.5 fL (80.0-100.0); MEAN PLATELET VOLUME 10.7 fL (7.4-10.4); NEUTROPHILS 66.6 % (40-80); PLATELET COUNT 81 10x3/uL (130-400); RBC 2.45 10x6/uL (4.00-5.40); RDW 20.8 % (11.5-14.5); WBC 4.2 10x3/uL (4.8-10.8)
[2016-10-18 12:58] LABS: ANION GAP 4.7 mmol/L (8-16); BILIRUBIN - TOTAL 2.9 mg/dL (0.2-1.3); CALCIUM 7.9 mg/dL (8.5-10.1); CARBON DIOXIDE 33.6 mmol/L (21.0-32.0); POTASSIUM - SERUM 4.3 mmol/L (3.5-5.1); PROTEIN - SERUM 6.2 g/dL (6.4-8.2)
--- NOTE | 2016-10-18 15:14 | NUR ---
PT HAS BEEN WITHDRAWN AND LATHARGIC TODAY. PT HAS BEEN AROUSED TO VOICE BUT QUICKLY GOIES BACK TO SLEEP. PT WAS ABLE TO TAKE HER MEDICATIONS WITH WATER USING A STRAW. PT HAS BEEN SLEEPING MOST OF THE DAY. LEG BRACE TO RIGHT LEG. NO FUTHER NEEDS AT THIS TIME. WILL CONTINUE TO MONITOR
[2016-10-18 15:44] VITALS: BP 142/70
[2016-10-18 19:00] VITALS: BP 129/54
--- NOTE | 2016-10-18 23:29 | NUR ---
NURSE ROUNDS 20:45 - PT LYING IN BED, JUST RETURNED FROM RADIOLOGY. PTS EYES ARE CLOSED, RESPIRATIONS EVEN AND UNLABORED. PT IS ROUSABLE TO VERBAL STIMULI, AND STATES THAT SHE IS VERY TIRED AND JUST WANTS TO SLEEP. PT DEMONSTRATES INCREASED LETHARGY, WEAKNESS, AND COMPLETE INABILITY TO DO ANY ADL'S OR EVEN USE THE CALL LIGHT. WHEN ADMINISTERING PTS MEDICATIONS, SHE WAS ABLE TO SIP THE STRAW BETTER TONIGHT VS LAST NIGHT, BUT STILL DEMONSTRATES DIFFICULTY SWALLOWING AT TIMES. PT DOES REQUIRE COACHING WHEN BEING GIVEN ANYTHING PO. PT DENIES ANY ACUTE NEEDS. CONTINUE TO MONITOR CLOSELY. BED LOW, CALL LIGHT IN REACH, SIDE RAILS X 2, HOB 30 DEGREES.
--- NOTE | 2016-10-18 23:43 | NUR ---
PTS IV HAS COME OUT. WILL HAVE TO RESITE.
[2016-10-19] VITALS: BP 117/47
[2016-10-19 04:00] VITALS: BP 108/61
--- NOTE | 2016-10-19 05:06 | NUR ---
PT LYING IN BED, EYES CLOSED, RESPIRATIONS EVEN AND UNLABORED. PT ROUSABLE TO VERBAL STIMULI. CONTINUE TO MONITOR CLOSELY. BED LOW, CALL LIGHT IN REACH, SIDE RAILS X 2, HOB 10 DEGREES.
--- NOTE | 2016-10-19 08:04 | EC ---
PATIENT:ALBERTA MARIN DATE OF SERVICE: 10/02/16 SEX: F MEDICAL RECORD: [id number] DATE OF : [birth year] LOCATION:D. D.211 AGE OF PATIENT: 61 ADMISSION DATE: 10/02/16 REFERRING PHYSICIAN: INTERPRETING PHYSICIAN: AMBER WANG M.D. ECHOCARDIOGRAM REPORT ECHO CHARGES 4 ECHO COMPLETE CLINICAL DIAGNOSIS: HTN ECHOCARDIOGRAPHIC MEASUREMENTS (adult normal given) AC root (d.<3.7cm) 2.9 LV Septum d (<1.2 cm> 1.3 Valve Excursion 1.7 LV Septum (systole) 1.6 Left Atria (s.<4.0cm> 4.1 LVPW d(<1.2cm) 1.2 RV (d.<2.3cm) 2.4 LVPW (sytole) 1.9 LV diastole(<5.6CM) 6.2 MV E-F(>70mm/sec) LV systole 4.3 LVOT Diameter 1.8 MV exc.(>10mm) Est.ejection fraction (50-75%) Pericardial Effusion N DOPPLER: LVIT A 114 E 84.0 LA RVSP 42.0 LVOT 121 AOP1/2T Asc. Ao 154 RVOT 56.0 RA PA 95.0 AV Gradient Peak 9.5 AV Mean 5.2 AV Area 1.8 MV Gradient Peak 5.6 MV Mean 2.0 MV Area COMMENTS: Manager Cash: Akhil NORRISOE Hot Repairman:Heaven Wang TAPE# PACS DATE OF SERVICE: 10/02/2016 INDICATION: Hypertension. REFERRING PHYSICIAN: Len Tabor DO. DESCRIPTION: Left ventricle is mildly dilated. There is moderate LV dysfunction noted. Estimated ejection fraction is in the order of 35%. Mitral valve is structurally normal. There is moderate regurgitation seen. Left atrium is mildly dilated. The aortic valve is trileaflet. I do not see any ECHOCARDIOGRAM REPORT [id number] ALBERTA MARIN stenosis or regurgitation. Right ventricle is normal size and function. Tricuspid valve is structurally normal. There is moderate regurgitation seen. Right ventricular systolic pressure is elevated at 49 mmHg. There is no pericardial effusion noted. IMPRESSION: 1. Mildly dilated left ventricle with moderate LV dysfunction with ejection fraction of 35%. 2. Moderate mitral regurgitation. 3. Moderate tricuspid regurgitation with elevated pulmonary pressures. TRANSINT:[id number] Voice Confirmation ID: [id number] DOCUMENT ID: [id number] AMBER WANG M.D. at 0804 CC: [id number] DICTATION DATE: 10/02/16 1540 MR TEACHER: 10/02/[address] [facility] [address] [id number]
--- NOTE | 2016-10-19 08:08 | NUR ---
ASSESSMENT DONE. DENIES NEEDS.
[2016-10-19 08:22] VITALS: BP 117/50
--- NOTE | 2016-10-19 09:07 | NUR ---
RESTS WITH EYES CLOSED. RESP UL ON . ISOLATION PRECAUTIONS CONT. CALL LIGHT IN REACH. WILL MONITOR NEEDS.
--- NOTE | 2016-10-19 10:52 | NUR ---
Nutrition follow-up: Diet: low sodium PO intake ~45% average of last 6 meals Pt has been very lethargic per nursing for several days. RDN noted NH3 elevated Wt: 177# - not a current wt Will continue to provide food choices and honor food preferences. RDN will order Ensure with meals if pt not already receiving it. Following.
[2016-10-19 12:07] LABS: EOSINOPHILS 1.2 % (0-7); HEMATOCRIT 29.8 % (36.0-48.0); IMMATURE GRANULOCYTES 0.5 % (0-5); LYMPHOCYTES 17.2 % (15-50); MCH 41.5 pg (26.0-34.0); MCHC 33.6 g/dL (31.0-37.0); MCV 123.7 fL (80.0-100.0); MEAN PLATELET VOLUME 10.4 fL (7.4-10.4); MONOCYTES 10.4 % (2-11); NEUTROPHILS 69.7 % (40-80); PLATELET COUNT 80 10x3/uL (130-400); RBC 2.41 10x6/uL (4.00-5.40); WBC 4.1 10x3/uL (4.8-10.8)
--- NOTE | 2016-10-19 12:11 | CN ---
PATIENT NAME:ALBERTA LEWIS MEDICAL RECORD: [id number] : [birth year] LOCATION:[facility] D.2111 ADMIT DATE: 10/02/16 ACCOUNT: [id number] CONSULTING PHYSICIAN: VAZQUEZ CARTER MD REFERRING PHYSICIAN: CALLI SWANSON DO DATE OF CONSULTATION: 10/02/2016 CONSULT REQUESTING PHYSICIAN: Calli Swanson DO. REASON FOR CONSULTATION: Pneumonia. HISTORY OF PRESENT ILLNESS: Mrs. Lewis is a 61-year-old female who has a history of smoking and admitted with fever and not feeling well. She had CT scan of chest, which showed bilateral infiltrates. ____ acute UT. She had a fever last night. She coughed without ____ sputum production. The patient is also very feeling weak and lethargic. REVIEW OF SYSTEMS: Mainly in the history of present illness. PAST MEDICAL HISTORY: 1. Seizure disorder. 3. Hypertension. 4. History of diarrhea. PAST SURGICAL HISTORY: 1. Cholecystectomy. 2. . ALLERGIES: No known drug allergies. MEDICATIONS: She is on Augmentin, oxycodone, Percocet and ibuprofen. PERSONAL AND SOCIAL HISTORY: The patient is an ex-smoker. She is a nondrinker. She is , lives with her . FAMILY HISTORY: Noncontributory. PHYSICAL EXAMINATION: GENERAL: Now, the patient is lying comfortably. She is not in acute distress. VITAL SIGNS: The blood pressure is 123/82, pulse is 83, respirations 13, temperature of 97.5 and SPO2 is 97% on 2 liters nasal cannula. HEENT: Conjunctivae is pink, sclerae nonicteric. NECK: Supple. No JVD. CHEST: With bilateral crackles. No wheezing. HEART: Rhythm regular, normal sound, no murmur. ABDOMEN: Soft. Bowel sounds present. RECTAL: Deferred. EXTREMITIES: No cyanosis, no clubbing and no pedal edema. Bilateral lower leg had been dressed after having a fall. OTHER LABORATORY DATA: CBC: The WBC is 3.2, hemoglobin 10.9, hematocrit 31.8 and the platelet count is 56. Chemistry: Sodium is 137, potassium 3.3, BUN is 12, creatinine 1.1 and the bicarb is 20. The lactic acid is 9.3. AST is 42, ALT is 14, alkaline phosphatase is 246 and total bilirubin is 3.23. Troponin is 0.32. Albumin is 1.2. CONSULT REPORT [id number] TANIAALBERTA Carmen IMPRESSION: 1. Acute hypoxic respiratory failure. 2. Bilateral pneumonia on the CT scan of the chest, most likely community-acquired pneumonia, rule out aspiration. 3. Sepsis with lactic acidosis. 4. Acute myocardial infarction. 5. Cirrhosis of liver. 6. Liver mass on the CT scan of the chest. 7. Pancytopenia, leukopenia and thrombocytopenia, most likely related to cirrhosis of the liver. 8. Seizure disorder. 9. Ex-smoker, suspect chronic obstructive pulmonary disease. RECOMMENDATION: 1. Albuterol and ipratropium nebulizer. 2. Start her on cefepime and doxycycline IV. 3. Supplemental oxygen as required. 4. Workup for the mass in the liver, discussed with Dr. Swanson. 5. Neurology has been consulted. Dr. Swanson, once again, thanks for involving me in the care of Ms. Lewis. The critical care time is 45 minutes. TRANSINT:[id number] Voice Confirmation ID: [id number] DOCUMENT ID: [id number] VAZQUEZ CARTER MD at 1211 CC: CALLI SWANSON DO [id number] DICTATION DATE: 10/02/16 1407 CORK PRESSING MACHINE OPERATOR: 10/02/16 2302 ADM IN [id number] [place] [address]
[2016-10-19 12:26] VITALS: BP 123/50
[2016-10-19 12:30] LABS: ANION GAP 5.6 mmol/L (8-16); CALCIUM 8.1 mg/dL (8.5-10.1); CARBON DIOXIDE 33.3 mmol/L (21.0-32.0); POTASSIUM - SERUM 3.9 mmol/L (3.5-5.1); PROTEIN - SERUM 6.5 g/dL (6.4-8.2)
--- NOTE | 2016-10-19 13:25 | NUR ---
Patient Name: ALBERTA MARIN Encounter No: [id number] : 1955 Primary Insurance: MEDICAID [place] Anticipated DC Date: 10-14-2016 Planned Disposition: Skilled Nursing Care Fac MCR External Planned Provider: FIRST ACCEPTING CARE HOME DCP follow-up note: CM RECEIVED MESSAGE FROM RAVI [facility], [facility] AND [facility] WILL NOT ACCEPT PT. [facility] IS STILL CONSIDERING. CM FAXED UPDATE TO RAVI AT [phone], REQUESTED SHE START LOOKING [facility] FOR ASSISTED CARE PLACEMENT. CM UPDATED [employer]BER CHIQUITA. CM CALLED [facility], SPOKE TO MAREK WHO REPORTS NO ISOLATION BEDS AVAILABLE AND SUGGESTED SENDING REFERRALS TO [facility] OR [facility], [facility]. CM FAXED REFERRAL TO [facility] IT IS CLOSER, . CM SPOKE TO MICHAELA OF [facility], NO ASSISTED CARE BEDS AVAILABLE. CM SPOKE TO [facility] AND FAXED REFERRAL TO [facility], . CM FAXED REFERRAL TO [facility], . CM SPOKE TO RAFIA COOK [facility] WHO HAS MET WITH PT AND ASKED FOR CM TO LET HER KNOW WHERE PT IS PLACED AND THAT NO HOLD IS BEING TAKEN. CM WAITING ADMISSION DETERMINATIONS FROM [facility], [facility], [facility] AND [facility]. PATIENT NOTIFIED. Esvin Patel, CASE MANAGEMENT
[2016-10-19 16:30] VITALS: BP 94/50
--- NOTE | 2016-10-19 17:53 | NUR ---
WITHOUT CHANGES OR DISTRESS NOTED AT THIS TIME.
[2016-10-19 19:00] VITALS: BP 111/54
[2016-10-20] VITALS: BP 123/59
--- NOTE | 2016-10-20 01:57 | NUR ---
NURSE ROUNDS 21:45 - PT LYING IN BED, EYES CLOSED, ROUSABLE TO VERBAL STIMULI, HOWEVER DEMONSTRATES LETHARGY AND STUPOR. PT FINALLY DID AWAKEN TO TAKE HER HS MEDICATIONS, HOWEVER, HAD TO BE COACHED ON SWALLOWING. PTS HOB WAS RAISED TO 40 DEGREES, AND PT MAINTAINED FULL ALERTNESS DURING MEDICATION ADMINISTRATION. PT DEMONSTRATES GREAT DIFFICULTY WITH SWALLOWING, ESPECIALLY THE LARGER PILLS, SUCH MUCINEX. PT DOES NOT SPEAK FULL SENTENCES, RATHER SIMPLE SENTENCES SUCH "I AM HUNGRY, I AM THIRSTY, I AM SLEEPY". PTS TONGUE MOVES ERRATICALLY WHICH ALSO MAKES IT DIFFICULT FOR PT TO SWALLOW. THE UNCONTROLLED TONGUE MOVEMENTS ARE SIMILAR TO THAT OF DYSKINESIA. PT DID GET STRANGLED WITH HER LACTULOSE, AND HAD GREAT DIFFICULTY BREATHING FOR SEVERAL MINUTES AFTER. PT FINALLY WAS ABLE TO COUGH THICK, WHITE/BROWN SPUTUM UP, BUT REMAINED SOB. PT DOES REFUSE TO TAKE HER MEDICATIONS WITH APPLESAUCE, DEMANDING "WATER" ONLY. PT DEMONSTRATES MODERATE DIFFICULTY SIPPING A STRAW. PTS IV WAS PULLED OUT AND AFTER MULTIPLE ATTEMPTS, HAS NOT BEEN ABLE TO BE RESITED AT THIS TIME. PT REQUIRES CLOSE AND FREQUENT MONITORING. PT REMAINS CONSTANTLY WET WITH URINE R/T INCONTINENCE. CONTINUE PT TURNING Q 2 HOURS AND PRN. BED LOW, CALL LIGHT IN REACH, HOWEVER PT IS UNABLE TO UNDERSTAND HOW AND WHEN TO USE IT, SIDE RAILS X 2, HOB 30 DEGREES.
[2016-10-20 04:00] VITALS: BP 132/57
[2016-10-20 05:48] LABS: BASOPHILS 1.2 % (0-2); EOSINOPHILS 1.5 % (0-7); HEMATOCRIT 27.2 % (36.0-48.0); LYMPHOCYTES 19.9 % (15-50); MCH 41.1 pg (26.0-34.0); MCHC 33.1 g/dL (31.0-37.0); MCV 124.2 fL (80.0-100.0); MEAN PLATELET VOLUME 10.8 fL (7.4-10.4); MONOCYTES 10.8 % (2-11); NEUTROPHILS 65.6 % (40-80); PLATELET COUNT 75 10x3/uL (130-400); RBC 2.19 10x6/uL (4.00-5.40); RDW 21.2 % (11.5-14.5); WBC 4.1 10x3/uL (4.8-10.8)
[2016-10-20 06:06] LABS: ALBUMIN 0.9 g/dL (3.4-5.0); ANION GAP 5.3 mmol/L (8-16); BILIRUBIN - TOTAL 2.74 mg/dL (0.2-1.3); CALCIUM 7.9 mg/dL (8.5-10.1); CARBON DIOXIDE 32.3 mmol/L (21.0-32.0); CREATININE - SERUM 0.9 mg/dL (0.6-1.3); POTASSIUM - SERUM 3.6 mmol/L (3.5-5.1)
--- NOTE | 2016-10-20 06:24 | NUR ---
PT LYING IN BED, EYES CLOSED, ROUSABLE TO VERBAL STIMULI, RETURNS TO STUPOR STATE. BED CHANGED X 2 R/T COMPLETE INCONTINENCE WITH BED BATH GIVEN AND GOWN CHANGE. CONTINUE TO MONITOR CLOSELY.
--- NOTE | 2016-10-20 07:39 | NUR ---
ASSESSMENT DONE . DENIES NEEDS.
[2016-10-20 07:56] VITALS: BP 120/51
--- NOTE | 2016-10-20 09:24 | NUR ---
RESTS IN ISOLATION ROOM. CALL LIGHT IN REACH. WILL CONT. PLAN OF CARE.
--- NOTE | 2016-10-20 10:36 | NUR ---
Patient Name: ALBERTA MARIN Encounter No: [id number] : 1955 Primary Insurance: MEDICAID [place] Anticipated DC Date: 10-14-2016 Planned Disposition: [facility] Fac MCR External Planned Provider: FIRST ACCEPTING FACILITY DCP follow-up note: MELINA SPOKE TO PT'S SIGNIFICANT OTHER, [facility], , INFORMED THAT [facility] HAS NO AVAILABLE ISOLATION BED AND WE ARE NOW LOOKING AT OTHER [facility] [place] [facility]. 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 INDIGO WILL CONTACT PT'S DAUGHTERS WHEN HE GETS HOME FROM WORK, CM ASKED THAT HE CALL CM WITH NAMES AND PHONE NUMBERS LATER TODAY WHEN INDIGO GETS HOME FROM WORK. MELINA SPOKE TO LELIA AT [facility] WHO WILL EVALUATE PT FOR CUSTODIAL CARE PLACEMENT. CM WAITING ADMISSION DETERMINATIONS FROM [facility], [facility] AND [facility], [facility]. PATIENT NOTIFIED. Esvin Patel, CASE MANAGEMENT
[2016-10-20 12:44] VITALS: BP 125/52
--- NOTE | 2016-10-20 16:42 | NUR ---
WITHOUT CHANGES OR DISTRESS NOTED AT THIS TIME.
[2016-10-20 16:43] VITALS: BP 118/59
--- NOTE | 2016-10-20 17:21 | NUR ---
PATIENT UNABLE TO COMPLETE SCREENING AND NO FAMILY AVAILABLE BY PHONE. MRI SCREENING SHEET LEFT ON CHART AND NURSE KATE SAID SHE WILL ASK MOTHER TO COM PLETE IF SHE VISITS.
[2016-10-20 19:00] VITALS: BP 137/68
--- NOTE | 2016-10-20 22:24 | NUR ---
NURSE ROUNDS 21:30 - PT LYING IN BED, EYES CLOSED, RESPIRATIONS EVEN AND UNLABORED. PT MORE EASILY ROUSABLE TO VERBAL STIMULI, REQUESTING SOMETHING TO DRINK. JEANNETTE HYDE STATED THAT PT WAS MORE ALERT AND ASKING SPECIFICALLY FOR ORANGE JUICE AND MILK, AND WAS ON THE BED COLLADO EARLIER. PT WAS ALSO MORE ALERT WITH ME DURING HER MEDICATION ADMINISTRATION. PT REFUSED TO TAKE HER MEDS WITH APPLESAUCE OR PUDDING, AND DID GET MILDLY CHOKED WHILE SWALLOWING THE LARGER PILL, MUCINEX. PT WAS ABLE TO SWALLOW HER LACTULOSE WITHOUT ANY DIFFICULTY TONIGHT. CONTINUE TO MONITOR CLOSELY. BED LOW, CALL LIGHT IN REACH, SIDE RAILS X 2, HOB 30 DEGREES.
[2016-10-21 00:08] VITALS: BP 153/71
--- NOTE | 2016-10-21 01:32 | NUR ---
PT BATHED, LINENS CHANGED, GOWN CHANGED. PT TOLERATED WELL. CONTINUE TO MONITOR.
[2016-10-21 03:49] LABS: BASOPHILS 1.4 % (0-2); EOSINOPHILS 1.1 % (0-7); HEMATOCRIT 26.5 % (36.0-48.0); HEMOGLOBIN 8.8 g/dL (12-16); IMMATURE GRANULOCYTES 1.4 % (0-5); LYMPHOCYTES 18.9 % (15-50); MCH 41.1 pg (26.0-34.0); MCHC 33.2 g/dL (31.0-37.0); MCV 123.8 fL (80.0-100.0); MEAN PLATELET VOLUME 10.5 fL (7.4-10.4); NEUTROPHILS 64.2 % (40-80); PLATELET COUNT 64 10x3/uL (130-400); RBC 2.14 10x6/uL (4.00-5.40); RDW 21.3 % (11.5-14.5); WBC 3.7 10x3/uL (4.8-10.8)
[2016-10-21 04:00] VITALS: BP 111/53
[2016-10-21 04:16] LABS: ANION GAP 8.5 mmol/L (8-16); BILIRUBIN - TOTAL 3.09 mg/dL (0.2-1.3); CALCIUM 7.8 mg/dL (8.5-10.1); CREATININE - SERUM 0.9 mg/dL (0.6-1.3); POTASSIUM - SERUM 3.5 mmol/L (3.5-5.1); PROTEIN - SERUM 6.1 g/dL (6.4-8.2)
--- NOTE | 2016-10-21 07:10 | NUR ---
RECEIVED REPORT. ASSUMED CARE OF PATIENT. AROUSES TO VERBAL STIMULI. GENERALIZED EDEMA. INCONTINENT OF B&B. ORIENTED TO NAME ONLY. ABLE TO FOLLOW COMMANDS, GENERALIZED WEAKNESS. O2 OFF AND OXYGEN SAT REPORTED AT 88%. REAPPLIED OXYGEN AND SAT 94% ON 2L. NO IV ACCESS. CALL LIGHT PLACED WITHIN REACH. BOX ALARM ATTACHED TO PATIENT AND IS PATENT.
--- NOTE | 2016-10-21 08:26 | NUR ---
INCONTINENT CARE PROVIDED AT THIS TIME. NO DISTRESS.
[2016-10-21 08:59] VITALS: BP 138/47
[2016-10-21 12:40] VITALS: BP 134/58
--- NOTE | 2016-10-21 15:21 | NUR ---
RESTING PEACEFULLY WITH EYES CLOSED. FOLLOWS COMMANDS. TURNED AND REPOSITIONED. LEG BRACE TO RIGHT LEG PATENT. BOX ALARM ATTACHED. NO DISTRESS. CALL LIGHT WITHIN REACH.
[2016-10-21 16:24] VITALS: BP 126/51
[2016-10-21 20:00] VITALS: BP 124/49
--- NOTE | 2016-10-21 20:09 | NUR ---
INITIAL ROUNDS COMPLETED AT 1915 HRS. PT RESTING WITH EYES CLOSED. RESP EVEN AND REGULAR. ASSESSMETN COMPLETED AT 1940 HRS. PT OPENS EYES TO VERBAL STIMULI, FOLLOWS COMMANDS THEN QUICKLY FALLS BACK TO SLEEP. NO IV. BRACE TO R LEG INTACT. 2+ EDEMA NOTED TO R FOOT. R PEDAL PULSES STRONG. CAI. PALPABLE PERIPHERAL PULSES. GENERALIZED EDEMA NOTED. LUNGS DIMINISHED IN BASES BILAT. PT REPOSITIONED IN BED FOR COMFORT. SR UP X2, CALL LIGHT WITHIN REACH.
--- NOTE | 2016-10-21 22:05 | NUR ---
PT AWOKE TO VERBAL STIMULI. TOOK MEDS 1 AT A TIME WITH SIPS OF APPLE JUICE IN BETWEEN. LACTULOSE 30CC GIVEN. PT TOLERATED WELL. PT ASKED FOR BEDPAN. PLACED ON BEDPAN BUT PT MISSED. INCONTINENT CARE DONE. PT REPOSITIONE DIN BED FOR COMFORT. WILL CONTINUE TO MONITOR. BOX ALARM ON.
--- NOTE | 2016-10-22 01:06 | NUR ---
PT REPOSITIONED IN BED FOR COMFORT. PT OPENED EYES THEN QUICKLY FELL BACK TO SLEEP. WILL CONTINUE TO MONITOR. BOX ALARM ON.
--- NOTE | 2016-10-22 02:17 | NUR ---
PT INCONTINENT OF URINE. INCONTINENT CARE DONE. BED BATH DONE. BED LINENS CHANGED. PT REPOSITIONED IN BED FOR COMFORT. WILL CONTINUE TO MONITOR. BOX ALARM ON.
[2016-10-22 04:00] VITALS: BP 139/60
--- NOTE | 2016-10-22 04:22 | NUR ---
PT REPOSITIONED N BED FOR COMFORT. OPENS EYES TO VERBAL STIMULI AND FOLLOWS COMMANDS. QUICKLY FALLS BACK TO SLEEP. WILL CONTINUE TO MONITOR. SR UP X2, CALL LIGHT WITHIN REACH AND BOX ALARM ON.
[2016-10-22 05:03] LABS: BASOPHILS 0.5 % (0-2); EOSINOPHILS 1.9 % (0-7); HEMATOCRIT 28.3 % (36.0-48.0); HEMOGLOBIN 9.4 g/dL (12-16); LYMPHOCYTES 19.4 % (15-50); MCHC 33.2 g/dL (31.0-37.0); MCV 123.6 fL (80.0-100.0); MEAN PLATELET VOLUME 10.3 fL (7.4-10.4); MONOCYTES 11.9 % (2-11); NEUTROPHILS 65.3 % (40-80); PLATELET COUNT 70 10x3/uL (130-400); RBC 2.29 10x6/uL (4.00-5.40); RDW 21.3 % (11.5-14.5); WBC 4.1 10x3/uL (4.8-10.8)
[2016-10-22 05:28] LABS: ALBUMIN 1.1 g/dL (3.4-5.0); ANION GAP 6.2 mmol/L (8-16); BILIRUBIN - TOTAL 3.4 mg/dL (0.2-1.3); CALCIUM 7.5 mg/dL (8.5-10.1); CARBON DIOXIDE 31.2 mmol/L (21.0-32.0); CREATININE - SERUM 0.9 mg/dL (0.6-1.3); POTASSIUM - SERUM 3.4 mmol/L (3.5-5.1); PROTEIN - SERUM 6.6 g/dL (6.4-8.2)
--- NOTE | 2016-10-22 06:13 | NUR ---
VSS THROUGHOTU NIGHT. PT CONTINUES TO BE LETHARGIC. INCONTINENT X2 DURING SHIFT. NEEDS MET; WILL CONTINUE TO MONITOR.
--- NOTE | 2016-10-22 07:00 | NUR ---
RECEIVED REPORT. ASSUMED CARE OF PATIENT. RESTING IN BED WITH EYES CLOSED. EASILY AROUSED WITH VERBAL STIMULUS. BOX ALARM ATTACHED TO RIGHT SHOULDER OF GOWN. CALL LIGHT WITHIN REACH. BRACE TO RIGHT LEG PATENT. INCONT OF BOWEL AND BLADDER. NO DISTRESS. VERBAL RESPONSES ARE MOSTLY SOUNDS, NO COMPREHENSIBLE WORDS.
[2016-10-22 08:46] VITALS: BP 124/62
--- NOTE | 2016-10-22 10:11 | NUR ---
TOLERATED PO MEDICATIONS WELL CRUSHED IN APPLESAUCE. ABLE TO GET PATIENT TO TAKE ALL PO MEDICATIONS. CALL LIGHT PLACED WITHIN REACH. NO DISTRESS. REMAINS CONFUSED, MOST SOUNDS ARE UNCOMPREHENSIBLE. BOX ALARM ATTACHED TO PATIENT.
[2016-10-22 12:12] VITALS: BP 112/47
--- NOTE | 2016-10-22 15:00 | NUR ---
INCONTINENT CARE PROVIDED. TURNED AND REPOSITIONED. CALL LIGHT WITHIN REACH. BOX ALARM ATTACHED TO PATIENT. NO DISTRESS. RESP EVEN AND UNLABORED.
[2016-10-22 16:23] VITALS: BP 126/58
[2016-10-22 20:00] VITALS: BP 115/52
[2016-10-23] VITALS (7 sets, daily range): BP systolic 102–142; BP diastolic 47–64
--- NOTE | 2016-10-23 00:31 | NUR ---
INITIAL ROUNDS COMPLETED AT 191 HRS. PT RESTING WITH EYES CLOSED. RESP EVEN AND REGULAR. PT INCONTINENT OF URINE AT 194 HRS. INCONTINENT CARE DONE. ASSESSMETN COMPLETEDA T 1950 HRS. PT LETHARGIC. OPENS EYES TO VERBAL STIMULI, FOLLOWS COMMANDS THEN QUICKLY FALLS BACK TO SLEEP. O2 2LNC. VSS. NO IV. GENERALIZED EDEMA NOTED. BRUISE NOTED TO L HIP. BRACE OFF R LEG. REPOSITINED IN BED FOR COMFORT AT THAT TIME. PM MEDS GIVEN. PT SWALLOWED PILLS 1 AT A TIME WITH SIPS OF WATER. LACTULOUSE 45CC GIVEN WITHOUT DIFFICULTY. PT INCONTINENT OF URINE AND STOOL AT 2300 HRS. INCONTINENT CARE DONE. PT REPOSITIONED IN BED FOR COMFORT. WILL CONTINUE TO MONITOR. S RUP X2, CALL LIGHT WITHIN REACH AND BOX ALARM ON.
--- NOTE | 2016-10-23 02:18 | NUR ---
PT RESTING WITH EYES CLOSED. RESP EVEN AND REGULAR. IV STARTED #22 TO L HAND WITH ATTEMPT X2. PT TOLERATED ACTIVITY WELL. WILL CONTINUE TO MONITOR.
--- NOTE | 2016-10-23 03:35 | NUR ---
PT INCONTINENT OF STOOL. INCONTINENT CARE DONE. PT REPOSITIONED IN BED FOR COMFORT. WILL CONTINUE TO MONITOR.
--- NOTE | 2016-10-23 04:26 | NUR ---
REPOSITIONED IN BED FOR COMFORT. WILL CONTINUE TO MONITOR.
[2016-10-23 05:53] LABS: BASOPHILS 0.4 % (0-2); EOSINOPHILS 1.1 % (0-7); HEMATOCRIT 28.5 % (36.0-48.0); HEMOGLOBIN 9.7 g/dL (12-16); IMMATURE GRANULOCYTES 0.6 % (0-5); LYMPHOCYTES 17.3 % (15-50); MCH 42.4 pg (26.0-34.0); MCV 124.5 fL (80.0-100.0); MEAN PLATELET VOLUME 10.6 fL (7.4-10.4); MONOCYTES 12.9 % (2-11); NEUTROPHILS 67.7 % (40-80); PLATELET COUNT 67 10x3/uL (130-400); RBC 2.29 10x6/uL (4.00-5.40); WBC 4.7 10x3/uL (4.8-10.8)
--- NOTE | 2016-10-23 06:05 | NUR ---
VSS THROUGHOUT NGITH. NS AT 30CC/HR STARTED TO IV TO R HAND. PT MORE ALERT THIS AM. AM AMMONIA LEVEL DOWN TO 74. NEEDS MET; WILL COTINUE TO MONITOR.
[2016-10-23 06:35] LABS: ALBUMIN 1.1 g/dL (3.4-5.0); ANION GAP 5.6 mmol/L (8-16); BILIRUBIN - TOTAL 3.34 mg/dL (0.2-1.3); CALCIUM 7.7 mg/dL (8.5-10.1); CARBON DIOXIDE 31.7 mmol/L (21.0-32.0); CREATININE - SERUM 0.9 mg/dL (0.6-1.3); POTASSIUM - SERUM 3.3 mmol/L (3.5-5.1); PROTEIN - SERUM 6.5 g/dL (6.4-8.2)
--- NOTE | 2016-10-23 07:25 | NUR ---
AM ROUNDS - PT APPEARS TO BE SLEEPING RECIEVING A BREATHING TX. SIDE RAILS UP X2. BED AT LOWEST POSITION. IV WITH NS AT 30CC/HR TO LEFT HAND. BOX ALARM ON AND ATTACHED. WILL CONTINUE TO MONITOR
--- NOTE | 2016-10-23 10:53 | NUR ---
Patient Name: ALBERTA MARIN Encounter No: [id number] : 1955 Primary Insurance: MEDICAID [place] Anticipated DC Date: 10-14-2016 Planned Disposition: Assisted Care Fac MCR External Planned Provider: FIRST ACCEPTING FACILITY DCP follow-up note: CM RECEIVED CALL FROM RAVI IS LOOKING AT [facility] OF [place] FOR POSSIBLE CASHIER OFFICE CARE PLACEMENT AND WILL LET CM KNOW WHAT SHE IS ABLE OR NOT ABLE TO FIND. CM FAXED UPDATES TO [facility], [facility], [facility], [facility] AND SENT REFERRAL TO [facility] [place]. CM WILL FOLLOW UP WITH PHONE CALLS TO EACH OF THE FOLLOWING FACILITIES AND IS WAITING ADMISSION DETERMINATIONS FROM [facility], , [facility] AND [facility], [facility] AND [facility]. Esvin Patel, CASE MANAGEMENT
--- NOTE | 2016-10-23 14:59 | NUR ---
SPOKE TO MORALES OVIEDO AND PATIENT FAMILY STILL HASNT COMPLETED MRI SCREENING. WILL AWAIT UPDATE FROM [facility] AND PERFORM WHEN COMPLETED.
--- NOTE | 2016-10-23 16:02 | NUR ---
ATTEMPTED TO PROVIDE PT WITH HER LACTULOSE AND SCHEDULED MEDS HOWEVER PT COULD BARELY FOLLOW COMMANDS, SHE DID DRINK LACTULOSE UP THROUGH HER STRAW BUT THEN IMMEDIATELY SPIT UP ALL LACTULOSE. PT IS VERY DROWSY BUT EASILY AROUSES HOWEVER WILL NOT SPEAK OR FOLLOW COMMANDS. NO FAMILY OR FRIENDS PRESENT. WILL CTM.
--- NOTE | 2016-10-23 16:49 | NUR ---
Patient Name: ALBERTA MARIN Encounter No: [id number] : 1955 Primary Insurance: MEDICAID [place] Anticipated DC Date: 10-14-2016 Planned Disposition: Longterm Care Fac MCR External Planned Provider: : FIRST ACCEPTING FACILITY DCP follow-up note: CM FOLLOWED UP WITH PHONE CALLS TO EACH OF THE FOLLOWING FACILITIES AND IS WAITING ADMISSION DETERMINATIONS: [facility] - CANT MEET PT'S NEEDS PER [facility] GARCIA- SUDARSHAN IS NOT IN TODAY, PLEASE CALL BACK TOMORROW. [facility] - THEY ARE STILL EVALUATING FOR ADMIT PER [facility] - LELIA WILL COME AND EVAL PT ON SUNDAY [facility] - RASHE[facility]A ADVISED THAT CM CALL TOMORROW AND ASK FOR NICOLE OR [facility]. CM ADVISED BY STAFF THAT SOMEONE WAS IN PT'S ROOM. CM MET WITH FEMALE WHO ADVISED THAT SHE IS PT'S ADOPTIVE SISTER, GISELLE MINOR, . GISELLE STATED THAT PT IS NOT , HAS BOYFRIEND NAMED INDIGO AND HIS SISTER NAMED KEVIN; PT'S HAS AN ADOPTIVE MOTHER WHO LIVES IN [place]; ADOPTIVE MOTHER'S NAME IS SANDRA SHIVANI, . GISELLE REPORTS THAT PT WOULD LEAVE AND NOT HAVE CONTACT WITH FAMILY FOR YEARS AND THEN REAPPEAR; PT'S MOTHER DOES NOT HAVE MUCH TO DO WITH PT AND IT WOULD NOT BE UNCOMMON FOR PT'S MOTHER NOT TO ASSIST WITH PT'S DECISIONS / PARTICIPATE. CM CONTINUES TO AWAIT ADMISSION ASSESSMENTS AND DETERMINATIONS FOR CORRECTION CARE FROM [facility], [facility], [facility] AND [facility]. Esvin Patel, CASE MANAGEMENT
--- NOTE | 2016-10-23 23:32 | NUR ---
NURSE ROUNDS 22:00 - PT LYING IN BED, EYES CLOSED, HARD TO ROUSE, BUT AFTER A FEW MINUTES, PT WAS ABLE TO UNDERSTAND COMMANDS AND FOLLOW SIMPLE COMMANDS. PT IS HAVING A DIFFICULT TIME HOLDING HER HEAD STRAIGHT, AND IT BOBS UP AND DOWN, AND BACK AND FORTH, BUT WAS ABLE TO TAKE HER MEDICATIONS. PT DID HAVE ANOTHER EPISODE WHERE SHE GOT STRANGLED ON THE LACTULOSE BUT WAS ABLE TO TAKE IT. PT IS CURRENTLY MOANING FROM HER ROOM, BUT WORDS ARE HARD TO UNDERSTAND. PT BECOMES STUPOROUS AND EASILY FALLS BACK TO SLEEP. CONTINUE TO MONITOR CLOSELY. PT IS UNABLE TO UNDERSTAND HOW TO USE A CALL LIGHT AND WHEN TO USE A CALL LIGHT. PT REQUIRES CLOSE AND FREQUENT MONITORING. BED LOW, CALL LIGHT IN PTS HAND, BUT PT UNABLE TO HOLD ONTO IT, HOB 35 DEGREES, BED ALARM ON.
[2016-10-24 03:43] VITALS: BP 134/58
--- NOTE | 2016-10-24 04:55 | NUR ---
PT IS LYING IN BED, EYES CLOSED, RESPIRATIONS EVEN AND UNLABORED. PT HAS BEEN CHANGED SEVERAL TIMES THIS SHIFT R/T HER URINARY AND BOWEL INCONTINENCE. PT ROUSABLE TO VERBAL STIMULI, CONFUSED, STUPOROUS AND IMMEDIATELY RETURNS TO SLEEPING. CONTINUE TO MONITOR CLOSELY. BED LOW, CALL LIGHT IN REACH, SIDE RAILS X 2, HOB 20 DEGREES AT THIS TIME.
[2016-10-24 05:56] LABS: BASOPHILS 0.6 % (0-2); EOSINOPHILS 1.2 % (0-7); HEMATOCRIT 28.2 % (36.0-48.0); HEMOGLOBIN 9.2 g/dL (12-16); IMMATURE GRANULOCYTES 0.8 % (0-5); LYMPHOCYTES 18.7 % (15-50); MCH 40.7 pg (26.0-34.0); MCHC 32.6 g/dL (31.0-37.0); MCV 124.8 fL (80.0-100.0); MEAN PLATELET VOLUME 10.9 fL (7.4-10.4); MONOCYTES 10.5 % (2-11); NEUTROPHILS 68.2 % (40-80); PLATELET COUNT 68 10x3/uL (130-400); RBC 2.26 10x6/uL (4.00-5.40); RDW 21.5 % (11.5-14.5)
[2016-10-24 06:07] LABS: ALBUMIN 1.2 g/dL (3.4-5.0); ANION GAP 5.3 mmol/L (8-16); BILIRUBIN - TOTAL 3.5 mg/dL (0.2-1.3); CALCIUM 7.6 mg/dL (8.5-10.1); CARBON DIOXIDE 30.9 mmol/L (21.0-32.0); CREATININE - SERUM 0.9 mg/dL (0.6-1.3); POTASSIUM - SERUM 3.2 mmol/L (3.5-5.1); PROTEIN - SERUM 6.8 g/dL (6.4-8.2)
--- NOTE | 2016-10-24 07:34 | NUR ---
PT IS RESTING IN BED WITH EYES CLOSED. AWAKENS TO VERBAL STIMULI. PT DID NOT SPEAK TO ME WHEN SPOKEN TO, BUT DID MAKE EYE CONTACT. NOTED TO BE INC. OF URINE. INC CARE AND LINEN CHANGE DONE. IV INFUSING TO LH WITHOUT DIFFICULTY. ISOLATION PRECAUTIONS OBSERVED PER HOSPITAL POLICY. SR'S ARE UP X 3 IN BED. CALL LIGHT AND BEDSIDE TABLE ARE WITHIN EASY REACH.
[2016-10-24 09:26] VITALS: BP 137/62
--- NOTE | 2016-10-24 09:39 | NUR ---
RESTS IN ISOLATION ROOM. IV PATENT. CALL LIGHT IN REACH. WILL CONT. PLAN OF CARE.
--- NOTE | 2016-10-24 12:10 | NUR ---
PT BEING SPOONFED BY HEALTH CENTER MANAGER. SMALL BITES ONLY TOLERATED.
[2016-10-24 12:21] VITALS: BP 118/59
--- NOTE | 2016-10-24 12:47 | NUR ---
Patient Name: ALBERTA MARIN Encounter No: [id number] : 1955 Primary Insurance: MEDICAID [place] Anticipated DC Date: 10-25-2016 Planned Disposition: Penitentiary Care Fac MCR External Planned Provider: [facility], [facility] MEDICAID BED DCP follow-up note: CM RECEIVED CALL FROM LELIA OF [facility], THEY PLAN TO ACCEPT PT TOMORROW FOR [facility]. PT'S SIGNIFICANT OTHER IS SCHEDULED TO MEET LELIA AT THE HOSPITAL ON TOMORROW, 10-25-16 AT NOON TO COMPLETE ADMISSION PAPTERWORK. CM NOTIFIED PT WHO LOOKED AT CM AND MOANED. CM WAITING ON PT'S SIGNIFICANT OTHER TO COMPLETE ADMISSION PAPERWORK ON 10-25-16 AT NOON FOR LONGTERM CARE ADMISSION TO [facility]. Esvin Patel, CASE MANAGEMENT
--- NOTE | 2016-10-24 14:16 | NUR ---
PT NOTED TO BE INC. OF A LARGE AMOUNT OF URINE. INC. CARE GIVEN.
--- NOTE | 2016-10-24 14:25 | NUR ---
Nutrition follow-up: Diet: Puree with thin liquids Pt is provided assistance with meals. Has to be spoonfed small sips or she gets strangled. Labs reviewed; NH3 very elevated today; 114 No new wt to assess Pt is not meeting estimated energy needs. If medically feasible will need PEG tube placed and nutrition support started. RDN following.
--- NOTE | 2016-10-24 14:30 | NUR ---
SPOKE WITH NURSE TAY SINGLETARY FAMILY STILL HASNT COMPLETED SCREENING FORM FOR MRI. UANBLE TO DO SCAN AT THIS TIME.
--- NOTE | 2016-10-24 15:56 | NUR ---
PT IS RESTING QUIETLY IN BED WITH EYES CLOSED. AWAKENS WHEN CARE IS GIVEN, BUT SLEEPS MOST OTHER TIMES. INC. OF URINE FREQUENTLY. UNRULY CARE GIVEN PRN.
--- NOTE | 2016-10-24 19:30 | NUR ---
RECEIVED PT IN BED NONVERBAL OPENS EYES RANDOMLY RESPONDS TO PAINFUL STIMULI VSS WILL CONTINUE TO MONITOR
[2016-10-24 20:20] VITALS: BP 125/56
[2016-10-24 23:52] VITALS: BP 125/40
[2016-10-25 03:53] VITALS: BP 123/47
--- NOTE | 2016-10-25 07:55 | NUR ---
0730-IN ENTERIC ISOLATION, PATIENT IS CONFUSED, SPEECH IS GARBLED. IV OF NS INFUSING AT KVO TO LEFT HAND. INFORMED IN REPORT THAT PATIENT HAS A RIGHT LEG FX, NO IMMOBLIZER ON AT PRESENT TIME. INCONT OF BOWEL AND BLADDER FROM REPORT. WILL MONITOR.
--- NOTE | 2016-10-25 09:22 | NUR ---
RETURNS FROM MRI. INCONTINENT OF URINE. COMPLETE LINEN CHANGE DONE. SKIN TO COCCYX IS CLEAN, NO BREAKDOWN SEEN. BOX ALARM SET ON PATIENT AND IN USE CORRECTLY.
[2016-10-25 11:14] LABS: BASOPHILS 0.4 % (0-2); EOSINOPHILS 1.5 % (0-7); HEMATOCRIT 30.9 % (36.0-48.0); HEMOGLOBIN 9.9 g/dL (12-16); IMMATURE GRANULOCYTES 0.6 % (0-5); LYMPHOCYTES 19.5 % (15-50); MCH 40.7 pg (26.0-34.0); MEAN PLATELET VOLUME 11.4 fL (7.4-10.4); MONOCYTES 9.9 % (2-11); NEUTROPHILS 68.1 % (40-80); PLATELET COUNT 65 10x3/uL (130-400); RBC 2.43 10x6/uL (4.00-5.40); WBC 4.8 10x3/uL (4.8-10.8)
[2016-10-25 11:20] LABS: MCV 127.2 fL (80.0-100.0)
[2016-10-25 11:39] LABS: ALBUMIN 1.1 g/dL (3.4-5.0); ANION GAP 7.3 mmol/L (8-16); BILIRUBIN - TOTAL 3.3 mg/dL (0.2-1.3); CALCIUM 7.6 mg/dL (8.5-10.1); CARBON DIOXIDE 32.2 mmol/L (21.0-32.0); CREATININE - SERUM 0.9 mg/dL (0.6-1.3); POTASSIUM - SERUM 3.5 mmol/L (3.5-5.1); PROTEIN - SERUM 6.7 g/dL (6.4-8.2)
[2016-10-25] MEDS ORDERED: CHRONULAC30 ML PO (13:48)
[2016-10-25] MEDS ORDERED: K-DUR20 MEQ PO (13:48)
--- NOTE | 2016-10-25 14:48 | NUR ---
Patient Name: ALBERTA MARIN Encounter No: [id number] : 1955 Primary Insurance: MEDICAID [facility] DC Date: 10-25-2016 Planned Disposition: Nursing Facility REI Cert External Planned Provider: [facility], [facility] MEDICAID BED DCP follow-up note: LELIA FROM [facility] MET WITH BAR THOMAS, PT'S SIGNIFICANT OTHER, WHO ASSISTED WITH FILLING OUT PT'S ADMISSION PAPERWORK. CM SPOKE TO LELIA WHO REPORTED THAT [facility] WILL ACCEPT PT TODAY FOR [facility]. PT TO TRANSPORT VIA AMBULANCE. CM NOTIFIED FESTUS PORRAS AND COMMUNICATIONS PLANNER NURSE. CM FAXED DISCHARGE INFORMATION TO [facility] AT [phone]. NURSE REPORT TO BE CALLED TO [facility], . PT TO TRANSPORT VIA AMBULANCE. Esvin Patel, CASE MANAGEMENT
--- NOTE | 2016-10-25 15:14 | NUR ---
1511-REPORT CALLED TO ISAAC SCHMITZ AT [facility]. WILL CALL [facility] FOR [facility].
--- NOTE | 2016-10-25 15:18 | NUR ---
[facility] IS CALLED FOR TRANSPORT, PATIENT IS INCONTENT AGAIN, CLEANED AND LINEN CHANGE.
--- NOTE | 2016-10-25 16:45 | NUR ---
VERBAL AND WRITTEN DISCHARGE INSTRUCTIONS GIVEN TO PATIENT. PATIENT IS UNABLE TO SIGN. SALINE LOCK REMOVED WITH CATH TIP INTACT. DISCHARGED TO [facility].
== END 2016-10-25 16:52 | DRG 248 ==
LOC: D.ER 23:18 → D.ICU 10-02 04:45 → D.M2 10-02 04:45
PROVIDERS: Family Medicine; Internal Medicine Cardiovascular Disease; Internal Medicine Pulmonary Disease; ADMIT Family Medicine
PROC: B2111ZZ Fluoroscopy of Multiple Coronary Arteries using Low Osmolar Contrast (ICD-10-PCS; 2016-10-06)
PROC: B2151ZZ Fluoroscopy of Left Heart using Low Osmolar Contrast (ICD-10-PCS; 2016-10-06)
PROC: 02703EZ Dilation of Coronary Artery, One Artery with Two Intraluminal Devices, Percutaneous Approach (ICD-10-PCS; principal; 2016-10-06 13:00)
PROC: 4A023N7 Measurement of Cardiac Sampling and Pressure, Left Heart, Percutaneous Approach (ICD-10-PCS; 2016-10-06 13:00)
DX: I21.4 Non-ST elevation (NSTEMI) myocardial infarction (principal); J96.01 Acute respiratory failure with hypoxia; J18.9 Pneumonia, unspecified organism; I50.21 Acute systolic (congestive) heart failure; D61.818 Other pancytopenia; I42.9 Cardiomyopathy, unspecified; J44.1 Chronic obstructive pulmonary disease with (acute) exacerbation; S82.141A Displaced bicondylar fracture of right tibia, initial encounter for closed fracture; R16.0 Hepatomegaly, not elsewhere classified; K70.30 Alcoholic cirrhosis of liver without ascites; G40.909 Epilepsy, unspecified, not intractable, without status epilepticus; E87.6 Hypokalemia; I25.10 Atherosclerotic heart disease of native coronary artery without angina pectoris; Z72.0 Tobacco use; I11.0 Hypertensive heart disease with heart failure; B96.1 Klebsiella pneumoniae [K. pneumoniae] as the cause of diseases classified elsewhere; X58.XXXA Exposure to other specified factors, initial encounter

== ENCOUNTER 2016-11-02 15:59 | Inpatient (IN) | payer MEDICAID ==
[2016-11-02] VITALS (17 sets, daily range): BP systolic 66–114; BP diastolic 32–91; Ht 152.4 cm; Wt 72.7 kg
[~2016-11-02] VITALS: Ht 152.4 cm; Wt 72.7 kg
--- NOTE | ~2016-11-02 | OP ---
PATIENT NAME: ALBERTA MARIN MEDICAL RECORD: [id number] :[birth year] LOCATION:[facility] [id number] ADMISSION DATE:11/02/16 SURGEON: ANKITA CARRENO MD DATE OF OPERATION: 11/02/2016 PREOPERATIVE DIAGNOSES: 1. Lower gastrointestinal bleed. 2. Acute blood loss anemia. 3. Liver cirrhosis. 4. Hepatic encephalopathy. 5. Thrombocytopenia. 6. Hypovolemic shock. POSTOPERATIVE DIAGNOSES: 1. Lower gastrointestinal bleed. 2. Acute blood loss anemia. 3. Liver cirrhosis. 4. Hepatic encephalopathy. 5. Thrombocytopenia. 6. Hypovolemic shock. PROCEDURE PERFORMED: Left subclavian vein triple-lumen central venous line placement. SURGEON: Ankita Carreno MD REPORT OF PROCEDURE: The patient's left chest was prepped and draped in sterile fashion. A total of 5 cc of 1% lidocaine was infused into the subcutaneous tissues. A needle was used to cannulate the left subclavian vein. The guidewire was advanced with ease. Over this wire, a dilator was placed followed by the triple lumen catheter. The catheter aspirated nonpulsatile dark blood and flushed easily with normal saline. This was sutured into place with 3-0 silk ties and dressed appropriately. COMPLICATIONS: None. CONDITION: Stable. ANESTHESIA: Local. BLOOD LOSS: Minimal. Procedure done at the bedside. TRANSINT:[id number] Voice Confirmation ID: [id number] DOCUMENT ID: [id number] ANKITA CARRENO MD CC: [id number] DICTATION DATE: 11/02/16 2337 GLOBAL DIRECTOR AIR AND CLIMATE CHANGE: 11/03/16 0557 ADM IN [facility] [address] [place] [address]
[~2016-11-02 15:59] MED LIST: ALDACTONE25 MG PO; ASPIRIN325 MG PO; AUGMENTIN 875-11 TAB PO; CHRONULAC30 ML PO; DILANTIN100 MG PO; K-DUR20 MEQ PO; LASIX40 MG PO; MAG-OX 400 MG400 MG PO; MOTRIN600 MG PO; MUCINEX DM ER1 EAC1 PO; PERCOCET 5-3251 TAB PO; PLAVIX75 MG PO; TESSALON PERLE100 MG PO; TOPROL XL25 MG PO; VASOTEC5 MG PO
[2016-11-02 17:31] LABS: EOSINOPHILS 0.5 % (0-7); HEMATOCRIT 30.4 % (36.0-48.0); HEMOGLOBIN 9.6 g/dL (12-16); IMMATURE GRANULOCYTES 0.7 % (0-5); INR 2.63 (0.85-1.17); LYMPHOCYTES 20.5 % (15-50); MCH 41.2 pg (26.0-34.0); MCHC 31.6 g/dL (31.0-37.0); MCV 130.5 fL (80.0-100.0); MONOCYTES 5.8 % (2-11); NEUTROPHILS 71.5 % (40-80); PROTIME 28.3 SECONDS (11.6-15.0); RBC 2.33 10x6/uL (4.00-5.40); RDW 22.4 % (11.5-14.5)
[2016-11-02 17:38] LABS: PLATELET COUNT 39 10x3/uL (130-400)
[2016-11-02 17:43] LABS: UDS - AMPHET NEGATIVE QUAL (NEGATIVE); UDS - BARB NEGATIVE QUAL (NEGATIVE); UDS - BENZO NEGATIVE QUAL (NEGATIVE); UDS - COCAINE NEGATIVE QUAL (NEGATIVE); UDS - METH NEGATIVE QUAL (NEGATIVE); UDS - OPIATE NEGATIVE QUAL (NEGATIVE); UDS - PCP NEGATIVE QUAL (NEGATIVE); UDS - THC NEGATIVE QUAL (NEGATIVE)
[2016-11-02 17:59] LABS: APPEARANCE CLOUDY (CLEAR); COLOR DK YELLOW (YELLOW); GLUCOSE NEGATIVE (NEGATIVE); KETONE NEGATIVE (NEGATIVE); LEUKOCYTE ESTERASE 1+ (NEGATIVE); NITRITE NEGATIVE (NEGATIVE); PROTEIN TRACE mg/dL (NEGATIVE); SPECIFIC GRAVITY 1.015 (1.005-1.020)
[2016-11-02 17:59] LABS: ALBUMIN 1.1 g/dL (3.4-5.0); ANION GAP 16.1 mmol/L (8-16); BILIRUBIN - TOTAL 3.95 mg/dL (0.2-1.3); CALCIUM 8.2 mg/dL (8.5-10.1); CARBON DIOXIDE 25.7 mmol/L (21.0-32.0); CREATININE - SERUM 1.2 mg/dL (0.6-1.3); MAGNESIUM - SERUM 1.5 mg/dL (1.8-2.4); PLATELET ESTIMATE DECREASED; POTASSIUM - SERUM 3.8 mmol/L (3.5-5.1); PROTEIN - SERUM 6.4 g/dL (6.4-8.2)
[2016-11-02 18:00] LABS: BACTERIA MANY /hpf (NONE SEEN); BILIRUBIN NEGATIVE (NEGATIVE); EPITHELIAL CELLS 0-5 /hpf (0-5); RED CELLS - URINE 0-5 /hpf (0-5)
--- NOTE | 2016-11-02 22:00 | NUR ---
ADMISSION ASSESSMENT COMPLETED, SEE FLOWSHEET.
--- NOTE | 2016-11-02 23:30 | NUR ---
DR CARRENO CONSULTED FOR CENTRAL LINE PLACEMENT, TRIPLE LUMEN PLACED IN LEFT SUBCLAVIAN.
[2016-11-03] VITALS (28 sets, daily range): BP systolic 73–194; BP diastolic 31–99
--- NOTE | 2016-11-03 01:45 | NUR ---
DR ALDANA CALLED DUE TO ENEMA, WAS NOT ABLE TO GIVE LACTULOSE AND RETAIN IT. ORDERS TO DROP NG TUBE AND GIVE LACTULOSE THAT WAY. INFORMED HIM ABOUT PATIENT'S CONDITIION AND THAT SHE IS BLEEDING FROM ABOUT EVERY ORIFICE. FURTHER ORDERS RECEIVED.
--- NOTE | 2016-11-03 02:06 | NUR ---
PATIENT'S HEART RATE DROPPED TO 40 AND LOST PULSE RIGHT AFTER, CODE INITIATED AND FOLLOWED PER ACLS PROTOCOL. DR SANCHEZ ARRIVED FOR ORDERS AND TO INTUBATE. ETT 23 @ THE LIP. PATIENT CURRENTLY MAXED OUT ON PRESSORS. AT 0227 A FEMORAL PULSE WAS DOPPLERED. SEE CODE BLUE SHEET FOR DETAILS.
[2016-11-03 02:45] LABS: BASOPHILS 0.4 % (0-2); EOSINOPHILS 0.2 % (0-7); IMMATURE GRANULOCYTES 0.8 % (0-5); LYMPHOCYTES 45.8 % (15-50); MCH 38.6 pg (26.0-34.0); MCHC 29.5 g/dL (31.0-37.0); MCV 130.7 fL (80.0-100.0); MEAN PLATELET VOLUME 12.2 fL (7.4-10.4); NEUTROPHILS 46.8 % (40-80); RDW 30.1 % (11.5-14.5); WBC 5.3 10x3/uL (4.8-10.8)
--- NOTE | 2016-11-03 02:45 | NUR ---
PATIENT'S BOYFRIEND IN WAITING ROOM, SPOKE WITH HIM AT LENGTH, ALLOWED HIM TO COME BACK AND SEE HER. HE WAS EXTREMELY UPSET, WISHED TO HAVE AQUACULTURE AND FISHERIES PROFESSOR WITH HIM. DUC WAS CALLED AND AQUACULTURE AND FISHERIES PROFESSOR CAME TO SEE HIM.
[2016-11-03 02:48] LABS: HEMATOCRIT 21.7 % (36.0-48.0); HEMOGLOBIN 6.4 g/dL (12-16); PLATELET COUNT 23 10x3/uL (130-400); RBC 1.66 10x6/uL (4.00-5.40)
--- NOTE | 2016-11-03 02:50 | NUR ---
RECEIVED LABS BACK AND CALLED DR ALDANA. NEW ORDERS RECEIVED.
[2016-11-03 02:56] LABS: HEMOGLOBIN A1C 4.7 % (4.8-6.0)
[2016-11-03 03:01] LABS: % SATURATION 115 % (15-55); IRON 88 ug/dl (35-150); TOTAL IRON BIND CAPACITY 76 ug/dl (260-445)
[2016-11-03 03:30] LABS: INR 3.97 (0.85-1.17); PROTIME 39.3 SECONDS (11.6-15.0)
--- NOTE | 2016-11-03 03:30 | NUR ---
WAS ABLE TO GET AHOLD OF PATIENT'S ADOPTIVE MOTHER AND DAUGHTER, CALLED BOTH PREVIOUSLY DURING THE CODE. NEITHER HAVE TALKED TO THE PATIENT IN SEVERAL YEARS. DID NOT FEEL COMFORTABLE ABOUT MAKING ANY DECISIONS.
[2016-11-03 03:37] LABS: ALKALINE PHOSPHATASE 111 U/L (46-116); AMYLASE - SERUM 79 U/L (25-115); CALCIUM 9.7 mg/dL (8.5-10.1); CKMB 5.2 U/L (0.0-3.6); LIPASE 182 U/L (73-393); PHOSPHOROUS 7.7 mg/dL (2.5-4.9); POTASSIUM - SERUM 4.3 mmol/L (3.5-5.1); PRO BNP 2005 pg/mL (0-125); THYROID STIMULATING HORMONE 1.38 uIU/mL (0.36-3.74); UREA NITROGEN 25 mg/dL (7-18)
[2016-11-03 03:44] LABS: GLUCOSE 235 mg/dL (74-106); MAGNESIUM - SERUM 1.9 mg/dL (1.8-2.4); eGFR NON AFRICAN AMERICAN 27 mL/min (90-120)
[2016-11-03 03:45] LABS: ALT (SGPT) 81 U/L (10-68); CALC OSMOLALITY 333 mosm/kg (275-300); CARBON DIOXIDE 17.2 mmol/L (21.0-32.0); CHLORIDE - SERUM 123 mmol/L (98-107); FERRITIN 4727 ng/mL (3-244); PROTEIN - SERUM 4.4 g/dL (6.4-8.2); SODIUM 163 mmol/L (136-145); TROPONIN-I 0.674 ng/mL (0.000-0.060)
--- NOTE | 2016-11-03 05:30 | NUR ---
PATIENT CODED, SEE CODE BLUE SHEET.
--- NOTE | 2016-11-03 06:10 | NUR ---
PATIENT IN NSR. MAXED OUT ON ALL VASOPRESSORS. WILL MONITOR.
--- NOTE | 2016-11-03 06:40 | NUR ---
PATIENT CODED- SEE CODE BLUE SHEET. DR SANCHEZ AT BEDSIDE. CALLED CODE @ 3162. FAMILY NOTIFIED.
--- NOTE | 2016-11-03 07:03 | NUR ---
PHYSICAL THERAPY TECHNICIAN LAUREN BASSETT NOTIFIED OF PT , OK TO RELEASE BODY
--- NOTE | 2016-11-03 07:25 | NUR ---
KIMBERLEY NOTIFIED OF PT
--- NOTE | 2016-11-03 07:41 | NUR ---
DR JENKINS CONSULTED, ORDERS RECEIVED.
[2016-11-03 08:35] LABS: D-DIMER-QUANTITATIVE > 20.00 ug/mLFEU (0.20-0.54)
[2016-11-03 08:40] LABS: FIBRINOGEN 60 mg/dL (239-481)
--- NOTE | 2016-11-03 13:56 | NUR ---
PATIENT WAS A RESIDENT AT [facility] IN [place], [place]. SHE CODED X2 THIS EARLY AM AND .
== END 2016-11-03 12:03 | DRG 813 ==
LOC: D.ER 15:59 → D.ICU 19:25
PROVIDERS: Emergency Medicine; Internal Medicine Gastroenterology; Nurse Practitioner Family; ADMIT Family Medicine Adult Medicine
PROC: 02HV33Z Insertion of Infusion Device into Superior Vena Cava, Percutaneous Approach (ICD-10-PCS; principal; 2016-11-02)
PROC: 5A12012 Performance of Cardiac Output, Single, Manual (ICD-10-PCS; 2016-11-03)
PROC: 5A12012 Performance of Cardiac Output, Single, Manual (ICD-10-PCS; 2016-11-03)
PROC: 5A12012 Performance of Cardiac Output, Single, Manual (ICD-10-PCS; 2016-11-03)
PROC: 0BH17EZ Insertion of Endotracheal Airway into Trachea, Via Natural or Artificial Opening (ICD-10-PCS; 2016-11-03)
PROC: 5A1935Z Respiratory Ventilation, Less than 24 Consecutive Hours (ICD-10-PCS; 2016-11-03)
DX: D65 Disseminated intravascular coagulation [defibrination syndrome] (principal); K92.2 Gastrointestinal hemorrhage, unspecified; D62 Acute posthemorrhagic anemia; E87.0 Hyperosmolality and hypernatremia; K72.90 Hepatic failure, unspecified without coma; R57.1 Hypovolemic shock; K74.60 Unspecified cirrhosis of liver; I10 Essential (primary) hypertension; I95.9 Hypotension, unspecified